=== PATIENT | male | born 1965 | race Caucasian/White ===

== ENCOUNTER 2021-05-08 17:19 | Inpatient (IN) | payer OTHER, SELFPAY ==
--- NOTE | ~2021-05-08 | FL_ITS ---
EXAMINATION: FL guidance in OR INDICATION: Reason for Exam cystoscopy COMPARISON: CT abdomen pelvis 05/08/2021 TECHNIQUE: Multiple fluoroscopic OR images were provided. FLUOROSCOPY TIME: 21.8 Cumulative dose: 7.35 mGy FINDINGS: Intraoperative fluoroscopy was obtained. No radiologist was in attendance. Partially imaged right ureteral stent. For operative report for complete evaluation. FL/FL guidance in OR IMPRESSION: Intraoperative fluoroscopy was obtained. Please correlate with intraoperative report.
--- NOTE | ~2021-05-08 | CT_ITS ---
EXAMINATION: CT ABDOMEN AND PELVIS WITHOUT CONTRAST CLINICAL INFORMATION: Flank pain COMPARISON: None TECHNIQUE: Multidetector volumetric imaging was performed from the superior aspect of the liver through the pubic symphysis. Sagittal and coronal reformatted images were obtained on the technologist's workstation. This CT examination was performed using dose optimization techniques as appropriate, variously including the following: *Automated exposure control *Adjustment of mA and/or kV according to patient size (this includes techniques or standardized protocols for targeted exams where dose is matched to indication/reason for exam; i.e. extremities or head) *Use of iterative reconstruction technique DLP: 647 mGy-cm FINDINGS: LUNG BASES: The visualized lung bases are unremarkable. LIVER, GALLBLADDER, AND BILIARY TREE: The liver is normal in size and shape but demonstrates decreased attenuation consistent with hepatic steatosis.. No focal hepatic lesion or biliary ductal dilatation is present. The gallbladder is unremarkable with no evidence of radiopaque gallstones, gallbladder wall thickening, or obvious pericholecystic inflammatory changes. PANCREAS: Unremarkable. SPLEEN: Unremarkable. A splenule is present ADRENAL GLANDS: Unremarkable. KIDNEYS AND URETERS: Left: A 7 x 3 mm ovoid stone is present at the left ureterovesical junction associated with dilatation of the ureter and moderate left-sided pelvocaliectasis. The stone measures 750 Hounsfield units. There is a 3 mm nonobstructing left lower pole renal calculus. No renal masses are seen Right: The right kidney and ureter appears normal. BLADDER: Unremarkable aside from the presence of the stone at the ureterovesical vesicle junction bulging into the bladder. GASTROINTESTINAL TRACT: The small and large bowel are unremarkable. The appendix is unremarkable. ABDOMINAL WALL: No significant hernia is appreciated. LYMPH NODES: No retroperitoneal lymphadenopathy VASCULAR: Mild calcific plaque present in the iliac vessels without aneurysm PELVIC VISCERA: There is mild BPH. Seminal vesicles appear normal OSSEOUS STRUCTURES: Unremarkable. CT/CT abdomen pelvis wo con IMPRESSION: 7 x 3 mm obstructing distal left ureteral calculus. Nonobstructing 3 mm left lower pole renal calculus. Other incidental findings as described above including hepatic steatosis and mild BPH Fleischner guidelines were followed.
[2021-05-08 17:49] VITALS: BP 172/102; PULSE 93; RESP 16; TEMP 36.7; O2SAT 98; BMI 31.9
[2021-05-08 18:13] LABS: Appearance Urine HAZY; Color Urine YELLOW; Glucose Urine UA NEG (NEG); Leukocyte Esterase Urine NEG (NEG); Nitrite Urine NEG (NEG); PH 6.5 (5.0-8.0); Specific Gravity - Urine 1.025 (1.005-1.025); UACC Culture Trigger NO; Urine Blood 2+ (NEG); Urine Ketones NEG (NEG); Urine Protein 2+ MG/DL (NEG-TRACE)
[2021-05-08 18:21] LABS: Squamous Epithelial Cell Urine TRACE /LPF
[2021-05-08 18:22] LABS: WBC Urine 0-2 /HPF (0-4)
--- NOTE | 2021-05-08 19:43 | ED_ITS ---
HPI - Male Genitourinary General Chief complaint: Urogenital-Male Stated complaint: left lower back pain Time Seen by Provider: 05/08/21 19:42 Source: patient Mode of arrival: ambulatory Limitations: no limitations History of Present Illness HPI Narrative: Patient is a 55-year-old male with no significant past medical history. He has been experiencing left flank pain for about 2 weeks. Today upon awakening, the pain had been increasingly worse and became intolerable throughout the day. He has been using Tylenol as needed for pain with minimal relief. He has associated pain with urination. Pain is made worse when lying down, and does report some relief with standing or walking. Denies fevers, chills, chest pain, palpitations, shortness breath, difficulty breathing, cough, nausea, vomiting, abdominal pain, hematuria, abnormal penile discharge, numbness or tingling of the legs, bowel or bladder dysunction. Related Data Allergies Allergy/AdvReac Type Severity Reaction Status Date / Time Penicillins Allergy Muscle Verified 05/08/21 17:49 cramps Review of Systems Review of Systems: Constitutional : No Weight loss, No Fever, No Chills ENT/Mouth :? No sore throat, No Rhinorrhea Eyes: No Swelling, No Redness Cardiovascular : No Chest Pain, No SOB, No Edema Respiratory : No Cough, No Sputum, No Wheezing Gastrointestinal : No Nausea, no Vomiting, no Diarrhea, no abdominal pain, No Hematochezia, No Melena Genitourinary : + left flank pain. + dysuria. No Urinary Frequency, No Hematuria, No Urgency? Musculoskeletal : No joint pain, No Myalgias, No Joint Swelling Skin : No Skin Lesions, No rash Neuro : No Weakness, No Numbness, No Dizziness, No Headache Psych : No Anxiety/Panic, No Depression Heme/Lymph: No Bruising, No Lymphadenopathy Endocrine : No Polyuria, No Polydipsia All other systems reviewed and are negative. [facility] Past Medical History Attestation statement: The following information was validated with the patient. Source: old records reviewed Medical History No known health problems Social History Social History Advance Directives: No Advance Directives Information Provided: No Physical Exam Vital Signs: Vital Signs: Last Vital Signs Temp 98.5 F 05/08/21 21:06 Pulse 83 05/08/21 21:06 Resp 16 05/08/21 21:06 BP 143/92 H 05/08/21 21:06 Pulse Ox 99 05/08/21 21:06 BMI result Body Mass Index 31.9 Vital signs have been reviewed and appeared to be correct. Blood pressure elevated 172/102. Heart rate normal.? Respiration rate normal. Temperature normal.? Oxygen saturation normal. Appearance: Alert.?Oriented to person, place and time. No acute distress. ?Normal affect. Eyes: Pupils equal, round and reactive to light.? ENT: Pharynx normal.?? Neck: Normal inspection.? Neck supple.?? CVS: Heart sounds normal. Normal heart rate and rhythm.? Pulses normal.?? Respiratory: No respiratory distress.? Lung sounds clear to auscultation bilaterally?? Abdomen: Soft and non-tender. Normoactive bowel sounds. No pulsatile mass.? : No CVA tenderness.? Skin: Skin warm and dry.? Normal skin color.? Normal skin turgor.?? Extremities: No lower extremity edema.? Back: No tenderness to palpation of the paraspinal muscles Neuro: Moves all extremities spontaneously. Sensation intact bilaterally. CN II- XII intact. No focal neuro deficits. Ambulates with normal steady gait. Course Course Course Narrative: Patient is a 55-year-old male with no significant past medical history being evaluated for left flank pain and dysuria. Urinalysis obtained from triage with no indication for infection, however, positive for 2+ blood and 15-29 rbc's, will obtain CT of the abdomen to evaluate for renal calculi, in addition to CBC and CMP. Not consistent with urinary tract infection, diverticulitis, testicular torsion. Not consistent with AAA, aortic dissection, ACS. Reevaluation(s) Reevaluation #1: Serum labs revealed hyperkalemia with potassium 5.7, YUDITH; BUN is normal at 15 but creatinine 1.96 and no comparison, 1L NS IVF ordered and Kayexalate, will repeat labs after medicated. CBC reveals a mild leukocytosis of 11. CT pending at this time. Time: 20:41 Reevaluation #2: CT reveals a 7 X 3 mm ovoid stone at the left UVJ with dilation of the ureter and moderate left-sided pelvocaliectasis, there is also a 3 mm nonobstructing left lower pole calculi. Incidental findings of hepatic steatosis and mild BPH. I discussed these findings with the patient. Given his additional YUDITH and hyperkalemia, will consult Urology Dr. Smalls, and plan for admission. Time: 21:16 Reevaluation #3: Spoke with Dr. Smalls from Urology who advises admission to medicine service for rehydration and likely procedure tomorrow. Spoke with Dr. Kirk, patient accepted to hospitalist service. Patient updated and is agreeable with plan. Time: 21:29 MDM - Male Genitourinary Medical Records Attestation: I reviewed the patient's medical records. Lab Data Attestation: I reviewed the patient's lab results. Result diagrams: 05/08/21 19:47 05/08/21 19:47 Labs: Lab Results 05/08/21 05/08/21 05/08/21 Range/Units 18:03 19:47 19:47 WBC 11.0 H (4.8-10.8) X10*3/uL RBC 5.02 (4.60-5.80) X10*6/uL Hgb 14.9 (14.0-18.0) g/dl Hct 46.4 (42.0-52.0) % MCV 92.4 (80.0-98.0) fL MCH 29.7 (27.0-33.0) pg MCHC 32.1 (31.0-36.0) g/dl RDW 13.0 (11.0-16.0) % Plt Count 258 (160-400) X10*3/uL MPV 10.0 (9.4-12.4) fL Immature Gran % (Auto) 0.2 (0.0-0.4) % Neut % (Auto) 75.3 H (45-73) % Lymph % (Auto) 14.6 L (20-40) % [place] % (Auto) 8.8 (2-11) % Eos % (Auto) 0.8 (0-4) % Baso % (Auto) 0.3 (0-2) % Lymph # (Auto) 1.6 (1.2-4.9) X10*3/uL [place] # (Auto) 1.0 (0.1-1.2) X10*3/uL Eos # (Auto) 0.1 (0.0-0.4) X10*3/uL Baso # (Auto) 0.0 (0.0-0.2) X10*3/uL Abs Immat Gran (auto) 0.02 (0.00-0.03) X10*3/uL Absolute Neuts (auto) 8.3 (2.0-8.3) x10*3/uL Absolute Nucleated RBC 0.000 (0.0-0.012) X10*3/uL Nucleated RBC % (auto) 0.0 (0.0-0.2) /100WBC Sodium 138 (135-145) mmol/L Potassium 5.7 H (3.3-5.1) mmol/L Chloride 105 (96-108) mmol/L Carbon Dioxide 23 (22-29) mmol/L Anion Gap 16 (12-20) BUN 15 (9-16) mg/dL Creatinine 1.96 H (0.5-1.4) mg/dL Estim Creat Clear Calc 45.7 Estimated GFR 36 Random Glucose 96 (60-115) mg/dL Calcium 9.3 (8.4-10.2) mg/dL Total Bilirubin 0.6 (0.0-1.0) mg/dL AST 48 H (5-37) U/L ALT 74 H (0-40) U/L Alkaline Phosphatase 70 (39-117) U/L Total Protein 8.5 H (6.5-8.0) g/dL Albumin 4.4 (3.5-5.0) g/dL Urine Color YELLOW Urine Appearance HAZY Urine pH 6.5 (5.0-8.0) Ur Specific [place] 1.025 (1.005-1.025) Urine Protein 2+ H (NEG-TRACE) MG/DL Urine Glucose (UA) NEG (NEG) MG/DL Urine Ketones NEG (NEG) MG/DL Urine Blood 2+ H (NEG) Urine Nitrite NEG (NEG) Ur Leukocyte Esterase NEG (NEG) Urine RBC 15-29 H (0) /HPF Urine WBC 0-2 (0-4) /HPF Ur Squamous Epith Cells TRACE /LPF Urine Bacteria NONE /LPF Imaging Data CT scan - abdomen: Radiologist's impression: [facility] [address] [place] [address] CT Scan Report Signed Patient: Dipak Ang MR#: [id number] : 1965 Acct:[id number] Age/Sex: 55 / M ADM Date: 05/08/21 Loc: HO.ED Attending Dr: Ordering Physician: Carmen Vickers CNP Date of Service: 05/08/21 Procedure(s): CT abdomen pelvis wo con Accession Number(s): [id number] cc: Carmen Vickers CNP~ EXAMINATION: CT ABDOMEN AND PELVIS WITHOUT CONTRAST? CLINICAL INFORMATION: Flank pain? COMPARISON: None? TECHNIQUE: Multidetector volumetric imaging was performed from the superior aspect of the liver through the pubic symphysis. Sagittal and coronal reformatted images were obtained on the technologist's workstation.? This CT examination was performed using dose optimization techniques as appropriate, variously including the following: *Automated exposure control *Adjustment of mA and/or kV according to patient size (this includes techniques or standardized protocols for targeted exams where dose is matched to indication/reason for exam; i.e. extremities or head) *Use of iterative reconstruction technique DLP: 647 mGy-cm FINDINGS: LUNG BASES: The visualized lung bases are unremarkable.? LIVER, GALLBLADDER, AND BILIARY TREE: The liver is normal in size and shape but demonstrates decreased attenuation consistent with hepatic steatosis.. No focal hepatic lesion or biliary ductal dilatation is present. The gallbladder is unremarkable with no evidence of radiopaque gallstones, gallbladder wall thickening, or obvious pericholecystic inflammatory changes.? PANCREAS: Unremarkable.? SPLEEN: Unremarkable. A splenule is present ADRENAL GLANDS: Unremarkable.? KIDNEYS AND URETERS: Left: A 7 x 3 mm ovoid stone is present at the left ureterovesical junction associated with dilatation of the ureter and moderate left-sided pelvocaliectasis. The stone measures 750 Hounsfield units. There is a 3 mm nonobstructing left lower pole renal calculus. No renal masses are seen Right: The right kidney and ureter appears normal. BLADDER: Unremarkable aside from the presence of the stone at the ureterovesical vesicle junction bulging into the bladder.? GASTROINTESTINAL TRACT: The small and large bowel are unremarkable. The appendix is unremarkable.? ABDOMINAL WALL: No significant hernia is appreciated.? LYMPH NODES: No retroperitoneal lymphadenopathy VASCULAR: Mild calcific plaque present in the iliac vessels without aneurysm PELVIC VISCERA: There is mild BPH. Seminal vesicles appear normal? OSSEOUS STRUCTURES: Unremarkable.? CT/CT abdomen pelvis wo con IMPRESSION: 7 x 3 mm obstructing distal left ureteral calculus. Nonobstructing 3 mm left lower pole renal calculus. Other incidental findings as described above including hepatic steatosis and mild BPH ? Fleischner guidelines were followed. ECG Data Attestation: I personally reviewed and interpreted this ECG as follows: ECG interpretation date: 05/08/21 ECG interpretation time: 20:57 Interpretation: Rate: 83 Rhythm:? Sinus rhythm with first-degree AV block [place]:? Normal Normal P waves.? WA interval prolonged 204? Normal QRS complex.?? ST T wave :??No ST elevation, no ST depression, no T-wave inversion qTC: 401 The study has been interpreted contemporaneously by me. Discharge Plan Discharge Clinical Impression: Obstruction of left ureteropelvic junction (UPJ) due to stone, Acute kidney injury, Acute hyperkalemia Patient Disposition: Still a Patient
[2021-05-08 19:55] LABS: MANUAL DIFF FLAG NO
[2021-05-08 19:57] LABS: Basophils Percent Auto 0.3 % (0-2); Eosinophils Absolute Auto 0.1 X10*3/uL (0.0-0.4); Eosinophils Percent Auto 0.8 % (0-4); Hematocrit 46.4 % (42.0-52.0); Hemoglobin 14.9 g/dl (14.0-18.0); Imm Gran Abs Auto 0.02 X10*3/uL (0.00-0.03); Imm Gran Pct Auto 0.2 % (0.0-0.4); Lymphocytes Absolute Auto 1.6 X10*3/uL (1.2-4.9); Lymphocytes Percent Auto 14.6 % (20-40); Mean Corpuscular HGB Conc 32.1 g/dl (31.0-36.0); Mean Corpuscular Hemoglobin 29.7 pg (27.0-33.0); Mean Corpuscular Volume 92.4 fL (80.0-98.0); Monocytes Percent Auto 8.8 % (2-11); Neutrophils Absolute Auto 8.3 x10*3/uL (2.0-8.3); Neutrophils Percent Auto 75.3 % (45-73); Platelet Count 258 X10*3/uL (160-400); Red Blood Count 5.02 X10*6/uL (4.60-5.80)
[2021-05-08 20:19] LABS: Alanine Aminotransferase 74 U/L (0-40); Albumin Level 4.4 g/dL (3.5-5.0); Alkaline Phosphatase 70 U/L (39-117); Anion Gap 16 (12-20); Aspartate Amino Transferase 48 U/L (5-37); Bilirubin Total 0.6 mg/dL (0.0-1.0); Blood Urea Nitrogen 15 mg/dL (9-16); Calcium 9.3 mg/dL (8.4-10.2); Carbon Dioxide 23 mmol/L (22-29); Chloride 105 mmol/L (96-108); Creatinine Clr Calc Pharmacy 45.7; Estimated Glomerular Filt Rate 36; Glucose Random 96 mg/dL (60-115); Potassium 5.7 mmol/L (3.3-5.1); Sodium 138 mmol/L (135-145); Total Protein 8.5 g/dL (6.5-8.0)
[2021-05-08] MEDS: Ketorolac Tromethamine 60 MG/2 ML VIAL IM (20:19)
--- NOTE | 2021-05-08 20:38 | ECG_ITS ---
Test Reason : HYPERKALEMIA Blood Pressure : / mmHG Vent. Rate : 083 BPM Atrial Rate : 083 BPM P-R Int : 204 ms QRS Dur : 088 ms QT Int : 342 ms P-R-T Axes : 052 -05 021 degrees QTc Int : 401 ms Normal sinus rhythm Normal ECG No previous ECGs available Referred By: Carmen Vickers Electronically Signed By:BARRY TRAYLOR MD
[2021-05-08 21:06] VITALS: BP 143/92; PULSE 83; RESP 16; TEMP 36.9; O2SAT 99
[2021-05-08] MEDS: Sodium Polystyrene Sulfon/Sorb 15 GM/60 ML ORAL.SUSP 30 GM PO (21:18)
[2021-05-08] MEDS: 0.9 % Sodium Chloride 1,000 ML 999 ML IV (21:18)
--- NOTE | 2021-05-08 22:51 | PM.IMHP ---
History of Present Illness Date of Service: 05/08/21 Chief Complaint: Flank pain this is a 55 yo M with no sig pmhx who presents to the hospital with left flank pain for past 2 wks. he reports that today the pain was worse, constant, 8/10, associated with nausea, no vomiting, no diarrhea constipation, no urinary symptoms. The pain is localized to the left flank, radiating to the groin.denies any fever or chills. no urinary symptoms. and no lower extremity symptoms. on arrival to the ed pt found to have temp of 98.1, HR of 93, RR of 16 BP of 172/102, sating 98% on RA Labs were sig for WBC ct of 11, potassium of 5.7 that resolved to 4 point T after rechecking the labs, creatinine of 1.96 with no baseline for comparison, AST of 48, ALT of 74, UA negative CT pelvic abd showed 7 x 3 mm obstructing distal left ureteral calculus. Nonobstructing 3 mm, withleft lower pole renal calculus.? Urology consulted and pt will be admitted for further management Review of Systems Review of Systems: Yes all other systems are reviewed and are negative [facility] Medical History (Updated 05/10/21 @ 21:00 by Flory Kirk MD) No known health problems Family History (Updated 05/10/21 @ 20:56 by Flory Kirk MD) Other No family history of coronary artery disease Surgical History (Updated 05/10/21 @ 20:57 by Flory Kirk MD) No pertinent past surgical history Social History (Updated 05/10/21 @ 20:58 by Flory Kirk MD) Household Members: Spouse Housing: House Do you presently have visiting nurse or other home services: No Alcohol intake: current Patient Tobacco Use Status: Never used Tobacco Use of substances other than those prescribed or required for medical reasons: No Advance Directives Date on File: 05/09/21 service: No Current occupational status: employed Meds Allergies Allergy/AdvReac Type Severity Reaction Status Date / Time Penicillins Allergy Muscle Verified 05/08/21 17:49 cramps Active Medications: Current Medications Pharmacy Consult (Consult Rx Perform Med Rec) 1 each MISCELLANE ONCE PRN PRN Reason: Consult order Home Medications Medication Instructions Recorded Confirmed Last Taken Type multivitamin 1 tab PO DAILY 05/08/21 05/08/21 05/08/21 History Physical Exam Vital Signs and Narrative: Vital Signs: Last Vital Signs Temp 98.5 F 05/08/21 21:06 Pulse 83 05/08/21 21:06 Resp 16 05/08/21 21:06 BP 143/92 H 05/08/21 21:06 Pulse Ox 99 05/08/21 21:06 BMI result Body Mass Index 31.9 Const: General: cooperative and no acute distress Orientation/consciousness: patient oriented x3 Eyes: General: appearance normal, both eyes and all related structures Pupils: Equal, round and reactive pupils present Resp: Effort & Inspection: normal respiratory effort Auscultation: clear to auscultation bilaterally Cardio: Rate: regular rate Rhythm: regular rhythm GI: Palpation (GI): Soft to palpation Auscultation: normal bowel sounds : Other: left cva tenderness Skin: General skin exam: no rashes or lesions noted Neuro: General: patient oriented x3 Cranial nerves: Yes Equal, round and reactive pupils present Cognition (Neuro): normal cognition Extrem: General: Yes normal to inspection and Yes no pedal edema Results Labs CBC and Chem 7: 05/09/21 07:06 05/10/21 05:12 Labs: Laboratory Results - last 24 hr 05/08/21 05/08/21 05/08/21 18:03 19:47 19:47 MCV 92.4 MCH 29.7 MCHC 32.1 RDW 13.0 Plt Count 258 MPV 10.0 Immature Gran % (Auto) 0.2 Neut % (Auto) 75.3 H Lymph % (Auto) 14.6 L [place] % (Auto) 8.8 Eos % (Auto) 0.8 Baso % (Auto) 0.3 Lymph # (Auto) 1.6 [place] # (Auto) 1.0 Eos # (Auto) 0.1 Baso # (Auto) 0.0 Abs Immat Gran (auto) 0.02 Absolute Neuts (auto) 8.3 Absolute Nucleated RBC 0.000 Nucleated RBC % (auto) 0.0 Anion Gap 16 Estim Creat Clear Calc 45.7 Estimated GFR 36 Random Glucose 96 Calcium 9.3 Total Bilirubin 0.6 AST 48 H ALT 74 H Alkaline Phosphatase 70 Total Protein 8.5 H Albumin 4.4 Urine Color YELLOW Urine Appearance HAZY Urine pH 6.5 Ur Specific [place] 1.025 Urine Protein 2+ H Urine Glucose (UA) NEG Urine Ketones NEG Urine Blood 2+ H Urine Nitrite NEG Ur Leukocyte Esterase NEG Urine RBC 15-29 H Urine WBC 0-2 Ur Squamous Epith Cells TRACE Urine Bacteria NONE Imaging Radiologist's Impressions: Impressions Abdomen/Pelvis CT 05/08/21 20:11 IMPRESSION: 7 x 3 mm obstructing distal left ureteral calculus. Nonobstructing 3 mm left lower pole renal calculus. Other incidental findings as described above including hepatic steatosis and mild BPH Fleischner guidelines were followed. Assessment and Plan (1) Acute kidney injury: Status: Acute (2) Acute hyperkalemia: Status: Acute (3) Urinary tract obstruction by kidney stone: Status: Acute (4) Ureteric stone: Status: Acute Plan 55 yo M who presents to the hospital with complaints of flank pain found to have obstructing kidney stone # obstructing renal stone - will tx with iv abx - iv fluids - consult urology - follow cultures # hyperkalemia - received kayexalate - follow BMP Given the obstructing stone, leukocytosis and CVA tenderness will need IV abx and admission for pyelonephritis and urology evaluation Quality Stroke Does the patient have a stroke diagnosis?: No VTE Prior VTE?: No VTE Risk Level:: Medical - moderate - high VTE Device Contraindication: N/A - Device Ordered VTE Drug Contraindication: Treatment Not Indicated
[2021-05-08] MEDS: cefTRIAXone sodium 1 GM in 0.9 % Sodium Chloride 50 ML IV (23:16)
[2021-05-08] MEDS: Enoxaparin Sodium 40 MG/0.4 ML SYRINGE SUBCUT (23:16)
[2021-05-08 23:58] LABS: Anion Gap 10 (12-20); Blood Urea Nitrogen 15 mg/dL (9-16); Calcium 8.6 mg/dL (8.4-10.2); Carbon Dioxide 27 mmol/L (22-29); Chloride 107 mmol/L (96-108); Creatinine Clr Calc Pharmacy 48.9; Estimated Glomerular Filt Rate 39; Glucose Random 101 mg/dL (60-115); Potassium 4.2 mmol/L (3.3-5.1); Sodium 140 mmol/L (135-145)
[2021-05-09] VITALS (10 sets, daily range): BP systolic 129–144; BP diastolic 62–94; PULSE 71–94; RESP 12–20; TEMP 36.3–37.4; O2SAT 94–97; BMI 31.9
[2021-05-09] MEDS: 0.9 % Sodium Chloride Flush 3 ML SYRINGE IVFLUSH
--- NOTE | 2021-05-09 00:57 | PC.NURSE ---
REPORT GIVEN TO DUANE ANDREW. PT MOVED TO ROOM 22.
--- NOTE | 2021-05-09 01:11 | PC.NURSE ---
Assumed care of pt Pt resting on stretcher Pt states pain tolerable at this time NAD LR infusing Will continue to monitor
--- NOTE | 2021-05-09 02:21 | PC.NURSE ---
Covid swab collected
[2021-05-09 02:38] LABS: COVID-19 Test Negative (Negative)
[2021-05-09 07:14] LABS: MANUAL DIFF FLAG NO
[2021-05-09 07:16] LABS: Basophils Percent Auto 0.4 % (0-2); Eosinophils Absolute Auto 0.2 X10*3/uL (0.0-0.4); Hematocrit 41.7 % (42.0-52.0); Hemoglobin 13.7 g/dl (14.0-18.0); Imm Gran Abs Auto 0.02 X10*3/uL (0.00-0.03); Imm Gran Pct Auto 0.3 % (0.0-0.4); Lymphocytes Absolute Auto 2.4 X10*3/uL (1.2-4.9); Lymphocytes Percent Auto 30.7 % (20-40); Mean Corpuscular HGB Conc 32.9 g/dl (31.0-36.0); Mean Corpuscular Volume 91.4 fL (80.0-98.0); Mean Platelet Volume 9.9 fL (9.4-12.4); Monocytes Absolute Auto 0.8 X10*3/uL (0.1-1.2); Monocytes Percent Auto 10.4 % (2-11); Neutrophils Absolute Auto 4.4 x10*3/uL (2.0-8.3); Neutrophils Percent Auto 56.2 % (45-73); Platelet Count 219 X10*3/uL (160-400); Red Blood Count 4.56 X10*6/uL (4.60-5.80); White Blood Count 7.9 X10*3/uL (4.8-10.8)
[2021-05-09 07:51] LABS: Anion Gap 10 (12-20); Blood Urea Nitrogen 14 mg/dL (9-16); Calcium 8.4 mg/dL (8.4-10.2); Carbon Dioxide 28 mmol/L (22-29); Chloride 106 mmol/L (96-108); Creatinine Clr Calc Pharmacy 51.2; Estimated Glomerular Filt Rate 41; Glucose Random 106 mg/dL (60-115); Potassium 4.2 mmol/L (3.3-5.1); Sodium 140 mmol/L (135-145)
--- NOTE | 2021-05-09 08:57 | HO.PM.IMPN ---
Subjective Subjective Date of Service: 05/09/21 Interval History: uti, renal stone Review of Systems abd pain Physical Exam Vital Signs: Vital Signs: Last Vital Signs Temp 98.0 F 05/09/21 04:18 Pulse 79 05/09/21 04:18 Resp 12 05/09/21 04:18 BP 141/83 H 05/09/21 04:18 Pulse Ox 94 05/09/21 04:18 BMI result Body Mass Index 31.9 Appearance: Alert.? Oriented X3.? not in distress.? Eyes: Pupils equal, round and reactive to light.? Sclera nonicteric.? ENT: Pharynx normal.? Moist mucous membranes. cvs: rrr, [id number] . res: clear to auscultation ,no rhonchii or wheezing abd: no rebound or guarding ,nt, bs present. ext pulses present , no cyanosis . neuro: axo3 , nonfocal. Objective Data Active Medications Acetaminophen (Acetaminophen 325 Mg Tablet) 650 mg PO Q6H PRN PRN Reason: Pain, Mild (Pain Scale 1-3) Docusate Sodium (Docusate Sodium 100 Mg Capsule) 100 mg PO DAILY PRN PRN Reason: Constipation Enoxaparin Sodium (Enoxaparin Sodium 40 Mg/0.4 Ml Syringe) 40 mg SUBCUT Q24H [facility] Last Admin: 05/08/21 23:16 Dose: 40 mg Documented by: JESUS Ceftriaxone Sodium 1 gm/ (Sodium Chloride) 50 mls @ 100 mls/hr IV Q24H [facility] Last Infusion: 05/09/21 00:00 Dose: 0 mls/hr Documented by: JESUS Lactated Ringer's (Lr) 1,000 mls @ 100 mls/hr IVCONT .Q10H [facility] Last Admin: 05/09/21 00:00 Dose: 100 mls/hr Documented by: JESUS Morphine Sulfate (Morphine Sulfate 4 Mg/Ml Cartridge) 4 mg IVPUSH Q4H PRN; Protocol PRN Reason: Pain, Severe (Pain Scale 7-10) Multivitamins/Vitamin C (Multivitamin Tablet) 1 tab PO DAILY [facility] Last Admin: 05/09/21 08:32 Dose: Not Given Documented by: AMBREEN Non-Admin Reason: NPO Ondansetron HCl (Ondansetron Hcl 4 Mg/2 Ml Vial) 4 mg IVPUSH Q8H PRN PRN Reason: Nausea and Vomiting Oxycodone HCl (Oxycodone Hcl Immed Release 5 Mg Tablet) 5 mg PO Q6H PRN PRN Reason: Pain, Severe (Pain Scale 7-10) Pharmacy Consult (Consult Rx Perform Med Rec) 1 each MISCELLANE ONCE PRN PRN Reason: Consult order Sodium Chloride (0.9 % Sodium Chloride Flush 3 Ml Sy[facility]) [facility] Admin: 05/09/21 00:00 Dose: 3 ml Documented by: JESUS Labs CBC & Chem 7: 05/09/21 07:06 05/09/21 07:06 Labs: Laboratory Results - last 24 hr 05/08/21 05/08/21 05/08/21 18:03 19:47 19:47 MCV 92.4 MCH 29.7 MCHC 32.1 RDW 13.0 Plt Count 258 MPV 10.0 Immature Gran % (Auto) 0.2 Neut % (Auto) 75.3 H Lymph % (Auto) 14.6 L [place] % (Auto) 8.8 Eos % (Auto) 0.8 Baso % (Auto) 0.3 Lymph # (Auto) 1.6 [place] # (Auto) 1.0 Eos # (Auto) 0.1 Baso # (Auto) 0.0 Abs Immat Gran (auto) 0.02 Absolute Neuts (auto) 8.3 Absolute Nucleated RBC 0.000 Nucleated RBC % (auto) 0.0 Anion Gap 16 Estim Creat Clear Calc 45.7 Estimated GFR 36 Random Glucose 96 Calcium 9.3 Total Bilirubin 0.6 AST 48 H ALT 74 H Alkaline Phosphatase 70 Total Protein 8.5 H Albumin 4.4 Urine Color YELLOW Urine Appearance HAZY Urine pH 6.5 Ur Specific [place] 1.025 Urine Protein 2+ H Urine Glucose (UA) NEG Urine Ketones NEG Urine Blood 2+ H Urine Nitrite NEG Ur Leukocyte Esterase NEG Urine RBC 15-29 H Urine WBC 0-2 Ur Squamous Epith Cells TRACE Urine Bacteria NONE COVID-19 (KELLY) COVID-19 Clin Com 05/08/21 05/09/21 05/09/21 23:20 02:18 07:06 MCV 91.4 MCH 30.0 MCHC 32.9 RDW 13.0 Plt Count 219 MPV 9.9 Immature Gran % (Auto) 0.3 Neut % (Auto) 56.2 Lymph % (Auto) 30.7 [place] % (Auto) 10.4 Eos % (Auto) 2.0 Baso % (Auto) 0.4 Lymph # (Auto) 2.4 [place] # (Auto) 0.8 Eos # (Auto) 0.2 Baso # (Auto) 0.0 Abs Immat Gran (auto) 0.02 Absolute Neuts (auto) 4.4 Absolute Nucleated RBC 0.000 Nucleated RBC % (auto) 0.0 Anion Gap 10 L Estim Creat Clear Calc 48.9 Estimated GFR 39 Random Glucose 101 Calcium 8.6 D Total Bilirubin AST ALT Alkaline Phosphatase Total Protein Albumin Urine Color Urine Appearance Urine pH Ur Specific [place] Urine Protein Urine Glucose (UA) Urine Ketones Urine Blood Urine Nitrite Ur Leukocyte Esterase Urine RBC Urine WBC Ur Squamous Epith Cells Urine Bacteria COVID-19 (KELLY) Negative COVID-19 Clin Com See Note 05/09/21 07:06 MCV MCH MCHC RDW Plt Count MPV Immature Gran % (Auto) Neut % (Auto) Lymph % (Auto) [place] % (Auto) Eos % (Auto) Baso % (Auto) Lymph # (Auto) [place] # (Auto) Eos # (Auto) Baso # (Auto) Abs Immat Gran (auto) Absolute Neuts (auto) Absolute Nucleated RBC Nucleated RBC % (auto) Anion Gap 10 L Estim Creat Clear Calc 51.2 Estimated GFR 41 Random Glucose 106 Calcium 8.4 Total Bilirubin AST ALT Alkaline Phosphatase Total Protein Albumin Urine Color Urine Appearance Urine pH Ur Specific [place] Urine Protein Urine Glucose (UA) Urine Ketones Urine Blood Urine Nitrite Ur Leukocyte Esterase Urine RBC Urine WBC Ur Squamous Epith Cells Urine Bacteria COVID-19 (KELLY) COVID-19 Clin Com Assessment and Plan (1) Acute kidney injury: Status: Acute (2) Acute hyperkalemia: Status: Acute (3) Obstruction of left ureteropelvic junction (UPJ) due to stone: Status: Acute Plan Male was admitted for 55-year-old male admitted for YUDITH, renal stone, UTI possible 1. YUDITH and Obstructive uropathy secondary to renal stone. Continue IV fluid, pain control Urology evaluation for possible renal stone removal and stent. 2. UTI possible: Continue IV antibiotics 3 morbid obesity: Encouraged for weight loss, consider outpatient bariatric evaluation. Quality Stroke Does the patient have a stroke diagnosis?: No VTE Prior VTE?: No VTE Risk Level:: Medical - moderate - high VTE Device Contraindication: N/A - Device Ordered VTE Drug Contraindication: Treatment Not Indicated
--- NOTE | 2021-05-09 09:32 | MHC.CM.PN ---
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
[2021-05-09] MEDS: Lactated Ringers 1,000 ML 100 ML IVCONT ×3 (10:12→18:32)
[2021-05-09] MEDS: Acetaminophen 325 MG TABLET 650 MG PO ×2 (13:42→18:33)
--- NOTE | 2021-05-09 15:08 | PM.UROCN ---
History of Present Illness Consult details Consult date: 05/09/21 Narrative: 55-year-old male Present with left-sided flank pain of 2 days duration Associated with nausea but no vomiting Creatinine 1.7, WBC 7.9 CT scan imaging shows 7 mm left UVJ stone and associated hydroureteronephrosis Based on elevated creatinine and evidence of obstruction recommend intervention with stone removal and stent Questions answered Review of Systems Constitutional: Constitutional: Reports as per HPI and Reports no additional constitutional complaints Cardiovascular: Cardiovascular: Reports as per HPI and Reports no additional cardiovascular complaints Respiratory: Respiratory: Reports as per HPI and Reports no additional respiratory complaints Gastrointestinal: Gastrointestinal: Reports as per HPI and Reports no additional gastrointestinal complaints Genitourinary: Genitourinary: Reports as per HPI Musculoskeletal: Musculoskeletal: Reports no additional musculoskeletal complaints and Reports as per HPI Neurologic: Reports system reviewed and no additional complaints, except as documented and Reports as per HPI PMF Past Medical History Medical History (Updated 05/09/21 @ 15:09 by Jerzy Smalls MD) No known health problems Social History Social History Advance Directives: Yes Advance Directives on File: Yes Advance Directives Date on File: 05/09/21 service: No Current occupational status: employed Meds Allergies Allergy/AdvReac Type Severity Reaction Status Date / Time Penicillins Allergy Muscle Verified 05/08/21 17:49 cramps Active Medications: Current Medications Acetaminophen (Acetaminophen 325 Mg Tablet) 650 mg PO Q6H PRN PRN Reason: Pain, Mild (Pain Scale 1-3) Last Admin: 05/09/21 13:42 Dose: 650 mg Documented by: Docusate Sodium (Docusate Sodium 100 Mg Capsule) 100 mg PO DAILY PRN PRN Reason: Constipation Enoxaparin Sodium (Enoxaparin Sodium 40 Mg/0.4 Ml Syringe) 40 mg SUBCUT Q24H [facility] Last Admin: 05/08/21 23:16 Dose: 40 mg Documented by: Ceftriaxone Sodium 1 gm/ (Sodium Chloride) 50 mls @ 100 mls/hr IV Q24H [facility] Last Infusion: 05/09/21 00:00 Dose: Infused Documented by: Lactated Ringer's (Lr) 1,000 mls @ 100 mls/hr IVCONT .Q10H [facility] Last Admin: 05/09/21 10:12 Dose: 100 mls/hr Documented by: Morphine Sulfate (Morphine Sulfate 4 Mg/Ml Cartridge) 4 mg IVPUSH Q4H PRN; Protocol PRN Reason: Pain, Severe (Pain Scale 7-10) Multivitamins/Vitamin C (Multivitamin Tablet) 1 tab PO DAILY [facility] Last Admin: 05/09/21 08:32 Dose: Not Given Documented by: Ondansetron HCl (Ondansetron Hcl 4 Mg/2 Ml Vial) 4 mg IVPUSH Q8H PRN PRN Reason: Nausea and Vomiting Oxycodone HCl (Oxycodone Hcl Immed Release 5 Mg Tablet) 5 mg PO Q6H PRN PRN Reason: Pain, Severe (Pain Scale 7-10) Pharmacy Consult (Consult Rx Perform Med Rec) 1 each MISCELLANE ONCE PRN PRN Reason: Consult order Sodium Chloride (0.9 % Sodium Chloride Flush 3 Ml Syringe) 3 ml IVFLUSH QSHIFT [facility] Last Admin: 05/09/21 11:07 Dose: Not Given Documented by: Home Medications Medication Instructions Recorded Confirmed Last Taken Type multivitamin 1 tab PO DAILY 05/08/21 05/08/21 05/08/21 History Physical Exam Vital Signs: Vital Signs: Last Vital Signs Temp 98.0 F 05/09/21 04:18 Pulse 79 05/09/21 04:18 Resp 12 05/09/21 04:18 BP 141/83 H 05/09/21 04:18 Pulse Ox 94 05/09/21 04:18 BMI result Body Mass Index 31.9 Const: General: cooperative, healthy appearing, comfortable and no acute distress Orientation/consciousness: patient oriented x3 HENMT: Face and sinus: Yes normal facial exam Mouth: moist mucous membranes Neck: Neck: Yes normal visual inspection, Yes full ROM and Yes trachea midline Chest: Chest palpation & inspection: normal inspection of the chest Resp: Effort & Inspection: normal respiratory effort, able to speak in complete sentences and no respiratory distress GI: Inspection: Yes normal to inspection Back/Spine/Pelvis: Cervical Spine: normal cervical lordosis Thoracic/Lumbar Spine: thoracic and lumbar spine normal to inspection Skin: General skin exam: no rashes or lesions noted Neuro: General: patient oriented x3, tone normal and moves all extremities Extrem: General: Yes normal to inspection and Yes capillary refill normal Results Labs Result diagrams: 05/09/21 07:06 05/09/21 07:06 Labs: Abnormal lab results 05/08/21 05/08/21 05/08/21 Range/Units 18:03 19:47 19:47 WBC 11.0 H (4.8-10.8) X10*3/uL RBC (4.60-5.80) X10*6/uL Hgb (14.0-18.0) g/dl Hct (42.0-52.0) % Neut % (Auto) 75.3 H (45-73) % Lymph % (Auto) 14.6 L (20-40) % Potassium 5.7 H (3.3-5.1) mmol/L Anion Gap (12-20) Creatinine 1.96 H (0.5-1.4) mg/dL AST 48 H (5-37) U/L ALT 74 H (0-40) U/L Total Protein 8.5 H (6.5-8.0) g/dL Urine Protein 2+ H (NEG-TRACE) MG/DL Urine Blood 2+ H (NEG) Urine RBC 15-29 H (0) /HPF 05/08/21 05/09/21 05/09/21 Range/Units 23:20 07:06 07:06 WBC (4.8-10.8) X10*3/uL RBC 4.56 L (4.60-5.80) X10*6/uL Hgb 13.7 L (14.0-18.0) g/dl Hct 41.7 L (42.0-52.0) % Neut % (Auto) (45-73) % Lymph % (Auto) (20-40) % Potassium (3.3-5.1) mmol/L Anion Gap 10 L 10 L (12-20) Creatinine 1.83 H 1.75 H (0.5-1.4) mg/dL AST (5-37) U/L ALT (0-40) U/L Total Protein (6.5-8.0) g/dL Urine Protein (NEG-TRACE) MG/DL Urine Blood (NEG) Urine RBC (0) /HPF Short CBC 05/08/21 05/09/21 Range/Units 19:47 07:06 WBC 11.0 H 7.9 (4.8-10.8) X10*3/uL Hgb 14.9 13.7 L (14.0-18.0) g/dl Hct 46.4 41.7 L (42.0-52.0) % Plt Count 258 219 (160-400) X10*3/uL BMP 05/08/21 05/08/21 05/09/21 19:47 23:20 07:06 Sodium 138 140 140 Potassium 5.7 H 4.2 D 4.2 Chloride 105 107 106 Carbon Dioxide 23 27 28 BUN 15 15 14 Creatinine 1.96 H 1.83 H 1.75 H Calcium 9.3 8.6 D 8.4 Liver Function 05/08/21 Range/Units 19:47 Total Bilirubin 0.6 (0.0-1.0) mg/dL AST 48 H (5-37) U/L ALT 74 H (0-40) U/L Alkaline Phosphatase 70 (39-117) U/L Albumin 4.4 (3.5-5.0) g/dL Urine 05/08/21 Range/Units 18:03 Urine Color YELLOW Urine Appearance HAZY Urine pH 6.5 (5.0-8.0) Ur Specific [place] 1.025 (1.005-1.025) Urine Protein 2+ H (NEG-TRACE) MG/DL Urine Glucose (UA) NEG (NEG) MG/DL All other labs normal. Assessment and Plan (1) Ureteric stone: Status: Acute Plan Left UVJ stone Ureteroscopy We discussed the nature of the decision and reasonable alternatives for performing the above surgery. Interventions include chemical dissolution, ESWL, ureteroscopy with laser lithotripsy and stent placement, PCNL. Options such as medical therapy were discussed. The relative uncertainties and benefits related to each alternate procedure were adequately discussed. General surgical risks including, but not limited to, pain, bleeding, infection, myocardial infarction, pulmonary embolus, deep vein thrombosis and cerebrovascular accident which may result in further hospitalization were discussed. Full disclosure of the procedure as well as all major risks, benefits and complications were discussed including but not limited to damage to the urethra, bladder and kidney infection, damage to the ureter, stent migration or malposition, scarring to the renal pelvis, remnant stone fragments, subsequent stone passage with need for secondary procedures. The overall secondary procedure rate is approximately 10-15%. The success rate of the procedure was discussed. Success of the procedure in the short-term does not necessarily guarantee that long-term success will be maintained. Suitable follow up will need to be maintained. The patient showed understanding of discussion and wishes to proceed with - cystoscopy, retrograde, ureteroscopy, possible lithotripsy/stone basketing and stent on the left side - semi rigid Procedures Date of Service Date of Service: 05/09/21
--- NOTE | 2021-05-09 15:35 | HO.ANESPROP2 ---
HPI - Anesthesia Eval Consult details Narrative: Left ureter obstruction, acute renal failure PMFSH Active Problems Active Problems: All Active Problems (Updated 05/09/21 @ 15:09 by Jerzy Smalls MD) Ureteric stone (Acute) Acute kidney injury (Acute) Acute hyperkalemia (Acute) Past Medical History Medical History (Updated 05/09/21 @ 15:09 by Jerzy Smalls MD) No known health problems Family History Family history of problems with anesthesia: No Surgical History History of Problems with Anesthesia: No Social History Social History Advance Directives: Yes Advance Directives on File: Yes Advance Directives Date on File: 05/09/21 service: No Current occupational status: employed Meds Allergies Allergy/AdvReac Type Severity Reaction Status Date / Time Penicillins Allergy Muscle Verified 05/08/21 17:49 cramps Active Medications: Current Medications Acetaminophen (Acetaminophen 325 Mg Tablet) 650 mg PO Q6H PRN PRN Reason: Pain, Mild (Pain Scale 1-3) Last Admin: 05/09/21 13:42 Dose: 650 mg Documented by: Docusate Sodium (Docusate Sodium 100 Mg Capsule) 100 mg PO DAILY PRN PRN Reason: Constipation Enoxaparin Sodium (Enoxaparin Sodium 40 Mg/0.4 Ml Syringe) 40 mg SUBCUT Q24H [facility] Last Admin: 05/08/21 23:16 Dose: 40 mg Documented by: Ceftriaxone Sodium 1 gm/ (Sodium Chloride) 50 mls @ 100 mls/hr IV Q24H [facility] Last Infusion: 05/09/21 00:00 Dose: Infused Documented by: Lactated Ringer's (Lr) 1,000 mls @ 100 mls/hr IVCONT .Q10H [facility] Last Admin: 05/09/21 10:12 Dose: 100 mls/hr Documented by: Morphine Sulfate (Morphine Sulfate 4 Mg/Ml Cartridge) 4 mg IVPUSH Q4H PRN; Protocol PRN Reason: Pain, Severe (Pain Scale 7-10) Multivitamins/Vitamin C (Multivitamin Tablet) 1 tab PO DAILY [facility] Last Admin: 05/09/21 08:32 Dose: Not Given Documented by: Ondansetron HCl (Ondansetron Hcl 4 Mg/2 Ml Vial) 4 mg IVPUSH Q8H PRN PRN Reason: Nausea and Vomiting Oxycodone HCl (Oxycodone Hcl Immed Release 5 Mg Tablet) 5 mg PO Q6H PRN PRN Reason: Pain, Severe (Pain Scale 7-10) Pharmacy Consult (Consult Rx Perform Med Rec) 1 each MISCELLANE ONCE PRN PRN Reason: Consult order Sodium Chloride (0.9 % Sodium Chloride Flush 3 Ml Syringe) 3 ml IVFLUSH QSHIFT [facility] Last Admin: 05/09/21 11:07 Dose: Not Given Documented by: Home Medications Medication Instructions Recorded Confirmed Last Taken Type multivitamin 1 tab PO DAILY 05/08/21 05/08/21 05/08/21 History Exam Exam Date and Time: May 09, 2021 1535 Height,Weight and Vital Signs: Height 5 ft 6 in Weight 89.811 kg Last Vital Signs Temp 98.0 F 05/09/21 04:18 Pulse 79 05/09/21 04:18 Resp 12 05/09/21 04:18 BP 141/83 H 05/09/21 04:18 Pulse Ox 94 05/09/21 04:18 Pertinent Lab Results Pertinent Lab Results: Laboratory Tests 05/08/21 05/08/21 05/08/21 18:03 19:47 19:47 WBC 11.0 H RBC 5.02 Hgb 14.9 Hct 46.4 MCV 92.4 MCH 29.7 MCHC 32.1 RDW 13.0 Plt Count 258 MPV 10.0 Immature Gran % (Auto) 0.2 Neut % (Auto) 75.3 H Lymph % (Auto) 14.6 L [place] % (Auto) 8.8 Eos % (Auto) 0.8 Baso % (Auto) 0.3 Lymph # (Auto) 1.6 [place] # (Auto) 1.0 Eos # (Auto) 0.1 Baso # (Auto) 0.0 Abs Immat Gran (auto) 0.02 Absolute Neuts (auto) 8.3 Absolute Nucleated RBC 0.000 Nucleated RBC % (auto) 0.0 Sodium 138 Potassium 5.7 H Chloride 105 Carbon Dioxide 23 Anion Gap 16 BUN 15 Creatinine 1.96 H Estim Creat Clear Calc 45.7 Estimated GFR 36 Random Glucose 96 Calcium 9.3 Total Bilirubin 0.6 AST 48 H ALT 74 H Alkaline Phosphatase 70 Total Protein 8.5 H Albumin 4.4 Urine Color YELLOW Urine Appearance HAZY Urine pH 6.5 Ur Specific [place] 1.025 Urine Protein 2+ H Urine Glucose (UA) NEG Urine Ketones NEG Urine Blood 2+ H Urine Nitrite NEG Ur Leukocyte Esterase NEG Urine RBC 15-29 H Urine WBC 0-2 Ur Squamous Epith Cells TRACE Urine Bacteria NONE COVID-19 (KELLY) COVID-19 Clin Com 05/08/21 05/09/21 05/09/21 23:20 02:18 07:06 WBC 7.9 RBC 4.56 L Hgb 13.7 L Hct 41.7 L MCV 91.4 MCH 30.0 MCHC 32.9 RDW 13.0 Plt Count 219 MPV 9.9 Immature Gran % (Auto) 0.3 Neut % (Auto) 56.2 Lymph % (Auto) 30.7 [place] % (Auto) 10.4 Eos % (Auto) 2.0 Baso % (Auto) 0.4 Lymph # (Auto) 2.4 [place] # (Auto) 0.8 Eos # (Auto) 0.2 Baso # (Auto) 0.0 Abs Immat Gran (auto) 0.02 Absolute Neuts (auto) 4.4 Absolute Nucleated RBC 0.000 Nucleated RBC % (auto) 0.0 Sodium 140 Potassium 4.2 D Chloride 107 Carbon Dioxide 27 Anion Gap 10 L BUN 15 Creatinine 1.83 H Estim Creat Clear Calc 48.9 Estimated GFR 39 Random Glucose 101 Calcium 8.6 D Total Bilirubin AST ALT Alkaline Phosphatase Total Protein Albumin Urine Color Urine Appearance Urine pH Ur Specific [place] Urine Protein Urine Glucose (UA) Urine Ketones Urine Blood Urine Nitrite Ur Leukocyte Esterase Urine RBC Urine WBC Ur Squamous Epith Cells Urine Bacteria COVID-19 (KELLY) Negative COVID-19 Clin Com See Note 05/09/21 07:06 WBC RBC Hgb Hct MCV MCH MCHC RDW Plt Count MPV Immature Gran % (Auto) Neut % (Auto) Lymph % (Auto) [place] % (Auto) Eos % (Auto) Baso % (Auto) Lymph # (Auto) [place] # (Auto) Eos # (Auto) Baso # (Auto) Abs Immat Gran (auto) Absolute Neuts (auto) Absolute Nucleated RBC Nucleated RBC % (auto) Sodium 140 Potassium 4.2 Chloride 106 Carbon Dioxide 28 Anion Gap 10 L BUN 14 Creatinine 1.75 H Estim Creat Clear Calc 51.2 Estimated GFR 41 Random Glucose 106 Calcium 8.4 Total Bilirubin AST ALT Alkaline Phosphatase Total Protein Albumin Urine Color Urine Appearance Urine pH Ur Specific [place] Urine Protein Urine Glucose (UA) Urine Ketones Urine Blood Urine Nitrite Ur Leukocyte Esterase Urine RBC Urine WBC Ur Squamous Epith Cells Urine Bacteria COVID-19 (KELLY) COVID-19 Clin Com Airway Mallampati Class: II TM Dist: >3cm Neck ROM: Full Heart: RRR Lungs: CTA Assessment and Plan Assessment Anesthesia Assessment: Anesthesia Plan Discussed and Chart Reviewed Final Anesthetic Review Family History of Problems with Anesthesia: No History of Problems with Anesthesia: No NPO: Yes ASA Class: II Final Preanesthetic Review: No Changes in Pt Med Stat, Meds/Allgs Chart Reviewed and Anes Risks/Benef Reviewed Patient Risk: Low Procedure Risk: Low Anesthetic Plan Anesthetic Plan: GA Disposition: Standard PACU
--- NOTE | 2021-05-09 16:04 | MHC.SHP ---
Pre-Procedural Eval Section A Date of Service: 05/09/21 The patient is an INPATIENT: Yes Changes since office visit: No Cold of Flu in the past 2 weeks, No New Medical Problems, No Changes in Medication and No Patient answered all questions The History & Physical has been completed within 30 days and I have reviewed it.: Yes Section B Chief Complaint: Obstructing Stone, Pyelo, UTI Allergies: Allergies Allergy/AdvReac Type Severity Reaction Status Date / Time Penicillins Allergy Muscle Verified 05/08/21 17:49 cramps Plan Diagnosis/Plan: Unchanged (Cystoscopy, left retrograde, left ureteroscopy laser lithotripsy stent placement) I have reviewed the history and physical and performed a pertinent physical examination on my patient. No changes have occurred unless specified.
--- NOTE | 2021-05-09 16:31 | W.PM.OPN ---
Operative Note Operative Note Date of Service: 05/09/21 Narrative: PreOperative Diagnosis: distal left ureteric stone with hydroureteronephrosis Post Operative Diagnosis: inflamed distal left ureter with hydroureteronephrosis Procedure: - cystoscopy, left retrograde - left dilatation of ureteric orifice under fluoroscopy - left ureteroscopy - left stent placement Surgeon: Dr Jerzy Smalls Anesthesia: General Indications for procedure: 55-year-old male. Two day history left flank pain. CT scan with distal left 6 mm stone and hydroureteronephrosis with creatinine 1.75 Procedure: After informed consent was verified patient was brought to the operating placed in supine position. Anesthesia was administered per protocol. Patient was placed in modified dorsal lithotomy position and prepped and draped in a sterile fashion. Safety pause time-out and side of surgery confirmed. Antibiotics confirmed. A 22 Wallis[place] cystoscope was inserted per urethra. Bladder was normal in its entirety. Both ureteric orifices were in normal position. The left ureteric orifice was cannulated and a retrograde examination was performed. narrowing of left transmural ureter followed by left hydroureteronephrosis mild . A Sensor guidewire was placed up to the level of the renal pelvis under fluoroscopy. The rigid cystoscope was removed. A Dalton dilator was placed over the Sensor guidewire and used to dilate the ureteric orifice under fluoroscopy. The dilator was removed. The semi rigid ureteral scope was placed alongside the Sensor guidewire. inflamed left distal ureter, no stone noted. Proximal left hydroureteronephrosis. A 6 [place]isian by Twenty-six cm double-J stent was placed into the renal pelvis and bladder under a combination of fluoroscopy and direct visualization. The bladder was emptied. The patient tolerated the procedure well and was extubated in the operating room, and transferred in stable condition to the recovery area. Pathology: no stones Drains: 6 [place]is[place] by 26 cm double-J stent
[2021-05-09] MEDS: Phenazopyridine HCL 100 MG TABLET PO (18:33)
[2021-05-09] MEDS: cefTRIAXone sodium 1 GM in 0.9 % Sodium Chloride 50 ML IV (23:04)
[2021-05-09] MEDS: Enoxaparin Sodium 40 MG/0.4 ML SYRINGE SUBCUT (23:11)
[2021-05-10 04:00] VITALS: BP 135/72; PULSE 82; RESP 18; TEMP 36.5; O2SAT 95
[2021-05-10 06:24] LABS: Anion Gap 14 (12-20); Blood Urea Nitrogen 17 mg/dL (9-16); Carbon Dioxide 24 mmol/L (22-29); Chloride 108 mmol/L (96-108); Creatinine Clr Calc Pharmacy 67.9; Estimated Glomerular Filt Rate 57; Glucose Random 123 mg/dL (60-115); Potassium 4.1 mmol/L (3.3-5.1); Sodium 142 mmol/L (135-145)
[2021-05-10] MEDS: Lactated Ringers 1,000 ML 100 ML IVCONT (06:26)
[2021-05-10 07:20] VITALS: BP 138/82; PULSE 70; RESP 20; TEMP 36.7; O2SAT 94
[2021-05-10 08:05] LABS: Alanine Aminotransferase 53 U/L (0-40); Albumin Level 3.7 g/dL (3.5-5.0); Alkaline Phosphatase 68 U/L (39-117); Aspartate Amino Transferase 23 U/L (5-37); Bilirubin Direct 0.2 mg/dL (0.0-0.5); Bilirubin Total 0.5 mg/dL (0.0-1.0); Total Protein 6.7 g/dL (6.5-8.0)
[2021-05-10] MEDS: 0.9 % Sodium Chloride Flush 3 ML SYRINGE IVFLUSH (08:47)
[2021-05-10] MEDS: Multivitamin TABLET 1 TAB PO (08:47)
[2021-05-10 09:42] LABS: Appearance Urine HAZY; Color Urine YELLOW; Glucose Urine UA 100 MG/DL (NEG); Leukocyte Esterase Urine TRACE (NEG); Nitrite Urine POS (NEG); Urine Blood 3+ (NEG); Urine Ketones NEG (NEG); Urine Protein 2+ MG/DL (NEG-TRACE)
[2021-05-10 10:27] LABS: Bacteria Urine TRACE /LPF; Mucus Urine TRACE /LPF; RBC Urine TNTC /HPF (0); Squamous Epithelial Cell Urine TRACE /LPF
[2021-05-10 12:00] VITALS: BP 140/74; PULSE 97; RESP 18; TEMP 36.5; O2SAT 95
--- NOTE | 2021-05-10 12:11 | P.DS_ITS ---
DS: Providers Provider Date of Service: 05/10/21 Date of admission: 05/08/21 22:41 Primary care physician: Savannah Cabrera MD Consults: 05/08/21 22:39 Consult to Urology Routine Consulting Provider: Jerzy Smalls Reason for consultation: onstructing stone Has provider been notified: Yes DS: Diagnosis Discharge Diagnosis (1) Ureteric stone: Status: Acute DS: Summary Hospital Course Hospital Course: HPI:h&p pending Hospital course: Patient was admitted for possible obstructive uropathy and YUDITH-found to have leftUVJ stone , also started on IV antibiotic detail symptom of dysuria well as possible uti: Patient was seen by Urology: Patient code urinary stent-left ureter: Patient YUDITH improved with hydration stent placement. AKA is improving, urology recommended to Pyridium, also tylenol added for pain control. Will add Flomax to BPH(enlarged prostate noted onCT): Further management outpatient as per PCP and Urology. Patient was encouraged to hydrate well. Monitor BMP with PCP. Above management discussed with the patient in detail length he understand and in agreement with the above plan, time spent 50 minutes and 50% time spent on counseling. Significant findings: As above. Procedures performed: None. Treatment and response: As above. Complications: None. Time Spent with Patient Time attestation: Total time spent providing and/or coordinating discharge services: Discharge coordination time: Greater than 30 minutes Quality: Stroke Does the patient have a stroke diagnosis?: No Physical Exam Vital Signs: Vital Signs: Last Vital Signs Temp 98.1 F 05/10/21 07:20 Pulse 70 05/10/21 07:20 Resp 20 05/10/21 07:20 BP 138/82 05/10/21 07:20 Pulse Ox 94 05/10/21 07:20 BMI result Body Mass Index 31.9 Appearance: Alert.? Oriented X3.? not in distress.? Eyes: Pupils equal, round and reactive to light.? Sclera nonicteric.? ENT: Pharynx normal.? Moist mucous membranes. cvs: rrr, [id number] . res: clear to auscultation ,no rhonchii or wheezing abd: no rebound or guarding ,nt, bs present. ext pulses present , no cyanosis . neuro: axo3 , nonfocal.? DS: Data Data Completed and Pending Labs on day of discharge: Laboratory Results - last 24 hr 05/10/21 05/10/21 05:12 09:30 Sodium 142 Potassium 4.1 Chloride 108 Carbon Dioxide 24 Anion Gap 14 BUN 17 H Creatinine 1.32 Estim Creat Clear Calc 67.9 Estimated GFR 57 Random Glucose 123 H Calcium 9.0 D Total Bilirubin 0.5 Direct Bilirubin 0.2 AST 23 D ALT 53 H Alkaline Phosphatase 68 Total Protein 6.7 D Albumin 3.7 Urine Color YELLOW Urine Appearance HAZY Urine pH 6.0 Ur Specific [place] 1.020 Urine Protein 2+ H Urine Glucose (UA) 100 H Urine Ketones NEG Urine Blood 3+ H Urine Nitrite POS H Ur Leukocyte Esterase TRACE H Urine RBC TNTC H Urine WBC 1-4 Ur Squamous Epith Cells TRACE Urine Bacteria TRACE Urine Mucus TRACE Additional Comments Additional comments: CT/CT abdomen pelvis wo con IMPRESSION: 7 x 3 mm obstructing distal left ureteral calculus. Nonobstructing 3 mm left lower pole renal calculus. Other incidental findings as described above including hepatic steatosis and mild BPH ? Fleischner guidelines were followed. Discharge Plan Discharge Patient Disposition: Home, Self-Care Discharge Diagnosis: yudith, nephrolithasis, obstructive uropathy status post stent,possible uti,Possible bph. Referrals: Jerzy Smalls MD [Physician] - 1 Week (follow up outpatiently) Savannah Cabrera MD [Primary Care Provider] - 1 Week Discharge Medications: New tamsulosin 0.4 mg Capsule 0.4 mg PO DAILY Qty: 30 0RF phenazopyridine [Pyridium] 100 mg tablet 100 mg PO BID PRN (Reason: pain) Qty: 6 0RF acetaminophen [Tylenol] 325 mg tablet 650 mg PO Q6H PRN (Reason: pain) Qty: 10 0RF cefuroxime axetil 250 mg tablet 250 mg PO Q12H Qty: 12 0RF Continued multivitamin Tablet 1 tab PO DAILY 0RF Discharge Orders: Discharge Order (Routine); Ordered 05/10/21 Ordered By: Soila Keller Diet: advance to usual diet Activity on Discharge: As tolerated Stand Alone Forms: Patient Portal Discharge page Care Plan Goals: Patient was admitted for possible obstructive uropathy and YUDITH-found to have leftUVJ stone , also started on IV antibiotic detail symptom of dysuria well as possible uti: Patient was seen by Urology: Patient code urinary stent-left ureter: Patient YUDITH improved with hydration stent placement. AKA is improving, urology recommended to Pyridium, also tylenol added for pain control. Will add Flomax to BPH(enlarged prostate noted onCT): Further management outpatient as per PCP and Urology. Patient was encouraged to hydrate well. Monitor BMP with PCP. Health Concerns: As above. Plan of Treatment: As above. Assessment: As above. Discharge Date/Time: 05/10/21 13:42
[2021-05-10] MEDS: Tamsulosin HCL 0.4 MG CAPSULE PO (12:46)
--- NOTE | 2021-05-10 16:15 | HO.POSTANES ---
Post Anesthesia Evaluation Post Anesthesia Evaluation Vital Signs: Vital Signs Temp Pulse Resp BP Pulse Ox 05/10/21 12:00 97.7 F 97 18 140/74 H 95 05/10/21 07:20 98.1 F 70 20 138/82 94 Anesthesia: General LMA Mental Status: Awake Pain Control: Satisfactory Nausea/Vomiting: None Hydration: Adequate Anesthesia-Related Issues: No Anes. Related Issues
== END 2021-05-10 13:42 | disposition home or self-care (01) | DRG 661 ==
LOC: HO.ED 05-09 00:52 → HO.EDOVER 05-09 02:01 → HO.S3 05-09 15:58
PROVIDERS: Internal Medicine; Nurse Practitioner Family; Urology; Admitting Provider Internal Medicine; Emergency Provider Emergency Medicine Emergency Medical Services; PCP Internal Medicine; Visit Provider Internal Medicine
PROC: 0T778DZ Dilation of Left Ureter with Intraluminal Device, Via Natural or Artificial Opening Endoscopic (ICD-10-PCS; principal; 2021-05-09 16:30)
DX: N13.6 Pyonephrosis (principal); N17.9 Acute kidney failure, unspecified; E87.5 Hyperkalemia; E66.01 Morbid (severe) obesity due to excess calories; Z68.32 Body mass index [BMI] 32.0-32.9, adult; Z20.822 Contact with and (suspected) exposure to COVID-19; Z88.0 Allergy status to penicillin; Z79.899 Other long term (current) drug therapy
CPT/HCPCS: 36415; 74176; 80048; 80053; 80076; 81001; 85025; 87086; 87635; 93005; 96360; 96372; 99285; C1758; C1769; C2617; J0696; J1100; J1650; J1885; J1956; J2250; J2405; J3010; Q9967

== ENCOUNTER → 2021-05-20 12:57 | Outpatient (BNVA) | payer OTHER, SELFPAY | PROVIDERS: PCP Internal Medicine; Visit Provider Urology | DX: Z48.816 Encounter for surgical aftercare following surgery on the genitourinary system (principal); Z87.442 Personal history of urinary calculi | CPT/HCPCS: 52310 ==

== ENCOUNTER 2021-06-30 08:26 | Outpatient (REF) | payer OTHER, SELFPAY ==
--- NOTE | ~2021-06-30 | US_ITS ---
EXAMINATION: US RETROPERITONEAL LIMITED (RENAL ONLY) CLINICAL INFORMATION: Calculus of ureter. COMPARISON: CT abdomen and pelvis without contrast 05/08/2021. TECHNIQUE: Real-time imaging of the kidneys. FINDINGS: RIGHT KIDNEY: 11.5 x 4.5 x 5.3 cm (SAG x AP x TRV). The kidney is normal in size, contour, and echogenicity. Renal cortical thickness is normal. There is a 2 mm echogenic density in the midpole with twinkle artifact questionable for a small stone. No focal parenchymal lesions or hydronephrosis. LEFT KIDNEY: 11.8 x 4.8 x 4.9 cm (SAG x AP x TRV). The kidney is normal in size, contour, and echogenicity. Renal cortical thickness is normal. No calculi or focal parenchymal lesions. No hydronephrosis. US/US renal BI IMPRESSION: Question small right renal stone. Normal left kidney. Hydronephrosis no longer seen.
== END 2021-06-30 08:27 | disposition home or self-care (01) ==
LOC: HO.US 08:26
PROVIDERS: Visit Provider Urology
DX: N20.1 Calculus of ureter (principal)
CPT/HCPCS: 76775

== ENCOUNTER 2022-11-15 13:23 | Emergency (ER) | payer OTHER, SELFPAY ==
--- NOTE | ~2022-11-15 | CT_ITS ---
EXAMINATION: CT ABDOMEN AND PELVIS WITHOUT CONTRAST CLINICAL INFORMATION: R flank pain, hx nephrolithiasis. COMPARISON: 07/08/2021. TECHNIQUE: Multidetector volumetric imaging was performed from the superior aspect of the liver through the pubic symphysis without contrast per renal stone protocol. Sagittal and coronal reformatted images were obtained on the technologist workstation. This CT examination was performed using dose optimization techniques as appropriate, variously including the following: *Automated exposure control *Adjustment of mA and/or kV according to patient size (this includes techniques or standardized protocols for targeted exams where dose is matched to indication/reason for exam; i.e. extremities or head) *Use of iterative reconstruction technique DLP: 628 mGy-cm. FINDINGS: LUNG BASES: Minimal dependent atelectasis LIVER, GALLBLADDER, BILIARY TREE: Diffuse fatty infiltration of the liver with mild focal fatty sparing adjacent to the gallbladder fossa. No focal suspicious hepatic mass lesion The gallbladder is unremarkable with no evidence of radiopaque gallstones, gallbladder wall thickening, or obvious pericholecystic inflammatory changes. PANCREAS: Unremarkable. SPLEEN: Unremarkable. ADRENAL GLANDS: Unremarkable. KIDNEYS AND URETERS: The kidneys are normal in size, shape, and attenuation. No hydronephrosis, or intrarenal calculi seen. No perinephric stranding. There is very slight fullness to the right ureter extending up to a 5 mm calcification at the right ureterovesicular junction best appreciated on the thin slice images. BLADDER: Unremarkable. GASTROINTESTINAL TRACT: A few scattered colonic diverticula are seen but no colonic wall thickening or pericolonic inflammatory changes to suggest diverticulitis. Normal-appearing appendix in the right lower quadrant. ABDOMINAL WALL: Tiny fat-containing umbilical hernia LYMPHOVASCULAR STRUCTURES: Mild vascular calcification within the aorta iliac system. No bulky adenopathy. PELVIC VISCERA: Unremarkable. OSSEUS STRUCTURES: Unremarkable. CT/CT abdomen pelvis wo IV con IMPRESSION: Mild fullness to the right ureter extending up to a 5 mm calcification at the right ureterovesicular junction best appreciated on the thin slice images.
[2022-11-15 14:26] VITALS: BP 158/92; PULSE 86; RESP 18; TEMP 36.6; O2SAT 98; BMI 33.9
--- NOTE | 2022-11-15 14:28 | ED.MALEGU ---
HPI - Male Genitourinary General Chief complaint: Urogenital-Male Stated complaint: back pain/ kidney stone? Time Seen by Provider: 11/15/22 15:51 Source: patient and family () Mode of arrival: ambulatory Limitations: no limitations History of Present Illness HPI Narrative: Patient is a 57-year-old male presenting to the emergency department with complaint of right flank pain radiating to right lower abdomen and groin for the past week. Patient reports pain has fluctuated in intensity, last night was most severe episode which he rates at 20/10. Current pain 7/10. Took ibuprofen at home. He denies any nausea or vomiting. Denies fevers. Does report some dysuria but denies any hematuria. Reports history of kidney stones in the past and had stent placed in April of 2021. The pain feels similar to prior kidney stones. Denies any concern for STIs. MD Complaint: other (Right flank pain) Onset (ago): week(s) Duration: intermittent Location: right flank Radiation: right inguinal region and abdomen Severity scale (1-10): 7 Quality: sharp Relieving factors: none Exacerbating factors: none Context: other (History nephrolithiasis) Associated symptoms: Reports dysuria Related Data Home Medications Medication Instructions Recorded Confirmed multivitamin 1 tab PO DAILY 05/08/21 05/08/21 Previous Rx's Medication Instructions Recorded acetaminophen 325 mg tablet 650 mg (2 x 325 mg) PO Q6H PRN 05/10/21 (Tylenol) pain #10 tabs cefuroxime axetil 250 mg tablet 250 mg PO Q12H #12 tabs 05/10/21 phenazopyridine 100 mg tablet 100 mg PO BID PRN pain 6 doses #6 05/10/21 (Pyridium) tabs tamsulosin 0.4 mg capsule 0.4 mg PO DAILY #30 caps 05/10/21 ondansetron 4 mg disintegrating 4 mg PO Q8H PRN nausea and 11/15/22 tablet vomiting #14 tabs oxycodone 5 mg tablet 5 mg PO Q8H PRN pain #8 tabs 11/15/22 prednisone 20 mg tablet 40 mg (2 x 20 mg) PO DAILY #10 tabs 11/15/22 tamsulosin 0.4 mg capsule 0.4 mg PO BEDTIME #14 caps 11/15/22 Allergies Allergy/AdvReac Type Severity Reaction Status Date / Time Penicillins Allergy Muscle Verified 05/20/21 13:03 cramps Review of Systems Review of Systems: As per HPI. Yes all other systems are reviewed and are negative Constitutional: Constitutional: Reports as per HPI [facility] Past Medical History Medical History No known health problems Surgical History No pertinent past surgical history Family History Family History Other No family history of coronary artery disease Social History Social History Household Members: Spouse Housing: House Do you presently have visiting nurse or other home services: No Alcohol intake: current Alcohol intake frequency: does not drink Patient Tobacco Use Status: Never used Tobacco Smoked in Last 30 Days: No Use of substances other than those prescribed or required for medical reasons: No Advance Directives: Yes Advance Directives on File: Yes Advance Directives Date on File: 05/09/21 service: No Current occupational status: employed Physical Exam Vital Signs: Vital Signs: Last Vital Signs Temp 98 F 11/15/22 14:26 Pulse 86 11/15/22 14:26 Resp 18 11/15/22 14:26 BP 158/92 H 11/15/22 14:26 Pulse Ox 98 11/15/22 14:26 O2 Del Method Room Air 11/15/22 14:26 BMI result Body Mass Index 33.9 .Vital signs have been reviewed and appear to be correct. Blood pressure elevated. Heart rate normal. Respiratory rate normal. Temperature normal. Oxygen saturation normal. Const: General: cooperative, healthy appearing and no acute distress Orientation/consciousness: oriented to person, oriented to place, oriented to time and patient oriented x3 Limitations: no limitations HEENT: Head: Yes normocephalic and Yes atraumatic Ears: external ears normal General nose exam: Normal external nose present Face and sinus: Yes face symmetric Mouth: oropharynx normal and moist mucous membranes Throat: Yes uvula midline Eyes: Pupils: Equal, round and reactive pupils present Neck: Neck: Yes normal visual inspection and Yes supple Resp: Effort & Inspection: normal respiratory effort and able to speak in complete sentences Auscultation: clear to auscultation bilaterally Cardio: Rate: regular rate Rhythm: regular rhythm Heart sounds: S1 normal heart sound present and S2 normal heart sound present GI: Palpation (GI): Soft to palpation and nontender Auscultation: normoactive bowel sounds : General: Yes CVA tenderness on the right Back/Spine/Pelvis: Back: CVA tenderness Skin: General skin exam: elasticity normal and turgor normal Neuro: General: oriented to person, oriented to place, oriented to time, patient oriented x3, moves all extremities, no focal motor deficits and CN's II-XI intact bilaterally Cranial nerves: Yes Equal, round and reactive pupils present Cognition (Neuro): normal cognition Extrem: General: Yes full ROM, Yes no pedal edema and Yes no calf tenderness Psych: Mental Status: mental status grossly normal Affect: normal affect Thought process: Normal thought process present Course Course Course Narrative: RME: 57 yold male presnts to the ED for right flank pain with Dysuria. patient states pmh of kidney stones. labs ordered Medical Decision Making Medical Decision Making [facility] Narrative: Patient is a 57-year-old male presenting to the emergency department with complaint of right flank pain radiating to right lower abdomen and groin for the past week. On exam patient is awake, A+Ox3, VS WNL, afebrile, normal neurological exam without focal deficits, abdomen soft and nontender, right CVA tenderness. Given reported symptoms and physical exam findings, initial differential includes UTI, pyelonephritis, renal colic. Labs notable for no leukocytosis, no YUDITH, no other electrolyte abnormalities. No evidence of infection on UA. CT notable for 5mm calculi at right UVJ. My interpretation is in agreement with the radiologist's interpretation. Results discussed with patient and all questions answered. Consult with Dr. Duarte who is comfortable with patient going home on prednisone, tamsulosin, pain control and follow up outpatient in the office this week. Patient provided with urine strainer. Return precautions discussed at bedside. Patient verbalized understanding of and agreement with plan. Differential Diagnosis Differential Diagnoses: The differential diagnosis associated with the presentation includes As per [facility]. Admission/Observation Consideration of admission/observation: Escalation of care including admission/observation considered Consult Healthcare Provider Management of the patient was discussed with: Drill Foreman (Dr. Duarte) Lab Data [facility] Lab Attestation statement: I reviewed the patient's lab results. As per [facility]. 11/15/22 14:45 11/15/22 14:45 Labs: Lab Results 11/15/22 11/15/22 Range/Units 14:45 14:50 WBC 7.0 (4.8-10.8) X10*3/uL RBC 5.14 (4.60-5.80) X10*6/uL Hgb 15.5 (14.0-18.0) g/dl Hct 46.0 (42.0-52.0) % MCV 89.5 (80.0-98.0) fL MCH 30.2 (27.0-33.0) pg MCHC 33.7 (31.0-36.0) g/dl RDW 13.2 (11.0-16.0) % Plt Count 258 (160-400) X10*3/uL MPV 10.2 (9.4-12.4) fL Immature Gran % (Auto) 0.1 (0.0-0.4) % Neut % (Auto) 54.6 (45-73) % Lymph % (Auto) 29.5 (20-40) % [place] % (Auto) 12.2 H (2-11) % Eos % (Auto) 3.0 (0-4) % Baso % (Auto) 0.6 (0-2) % Lymph # (Auto) 2.1 (1.2-4.9) X10*3/uL [place] # (Auto) 0.9 (0.1-1.2) X10*3/uL Eos # (Auto) 0.2 (0.0-0.4) X10*3/uL Baso # (Auto) 0.0 (0.0-0.2) X10*3/uL Abs Immat Gran (auto) 0.01 (0.00-0.03) X10*3/uL Absolute Neuts (auto) 3.8 (2.0-8.3) x10*3/uL Absolute Nucleated RBC 0.000 (0.0-0.012) X10*3/uL Nucleated RBC % (auto) 0.0 (0.0-0.2) /100WBC Sodium 139 (135-145) mmol/L Potassium 4.1 (3.3-5.1) mmol/L Chloride 109 H (96-108) mmol/L Carbon Dioxide 22 (22-29) mmol/L Anion Gap 12 (12-20) BUN 16 (9-16) mg/dL Creatinine 1.21 (0.5-1.4) mg/dL Estim Creat Clear Calc 74.5 Estimated GFR > 60 Random Glucose 83 (60-115) mg/dL Calcium 9.2 (8.4-10.2) mg/dL Total Bilirubin 0.6 (0.0-1.0) mg/dL AST 26 (5-37) U/L ALT 41 H (0-40) U/L Alkaline Phosphatase 73 (39-117) U/L Total Protein 7.8 (6.5-8.0) g/dL Albumin 4.1 (3.5-5.0) g/dL Urine Color Yellow Urine Appearance Clear Urine pH 5.5 (5.0-9.0) Ur Specific [place] 1.010 (1.005-1.025) Urine Protein Negative (Neg-Trace) mg/dL Urine Glucose (UA) Negative (Negative) mg/dL Urine Ketones Negative (Negative) mg/dL Urine Blood Negative (Negative) Urine Nitrite Negative (Negative) Ur Leukocyte Esterase Trace H (Negative) Urine RBC 0-2 (0-2) /HPF Urine WBC 0-5 (0-5) /HPF Ur Squamous Epith Cells 0-2 (0-2) /HPF Urine Bacteria None Seen (None Seen) Hyaline Casts 0-2 (0-2) /LPF Independent Interpretation I performed an independent interpretation of an: CT Scan Interpretation: 5 mm calculi at right UVJ Radiology Impression Discussion of test interpretation with radiology: I have reviewed the radiologist's reading. Radiologist Impression: CT/CT abdomen pelvis wo IV con IMPRESSION: Mild fullness to the right ureter extending up to a 5 mm calcification at the right ureterovesicular junction best appreciated on the thin slice images. Independent Historian Clinical information obtained from an independent historian. History obtained from or confirmed by: Spouse External Record Review External record reviewed: Inpatient record, Office record and Outpatient record Prescription Management I considered prescription management with: Pain Medication and Other Discharge Plan Discharge Clinical Impression: Ureteric stone Patient Disposition: Home, Self-Care Instructions: How to Strain Your Urine (ED), Ureteral Stones (ED) Additional Instructions: You were evaluated in the emergency department for flank pain. Your CT scan showed evidence of a stone in your right ureter. The stone is 5 mm which may or may not pass on its own. Your are being provided with a urine strainer to use at home, instructions are included in your discharge paperwork. You are being prescribed prednisone to decrease inflammation, tamsulosin to on lab 0 the stone to pass more easily, and oxycodone as needed for severe pain. You can also take 600 mg of ibuprofen every 6 hours as needed for pain. Your being prescribed ondansetron which you can use every 8 hours as needed for nausea. You are being referred to Urology, please call them 1st thing Wednesday morning for an appointment this week. Return to the emergency department if you develop worsening pain, persistent vomiting, fever 100.4? or greater, inability to urinate, or any other concerning symptoms. Prescriptions: New tamsulosin 0.4 mg capsule 0.4 mg PO BEDTIME Qty: 14 0RF prednisone 20 mg tablet 40 mg PO DAILY Qty: 10 0RF ondansetron 4 mg tablet,disintegrating 4 mg PO Q8H PRN (Reason: nausea and vomiting) Qty: 14 0RF oxycodone 5 mg tablet 5 mg PO Q8H PRN (Reason: pain) Qty: 8 0RF Rx Instructions: Partial Fill upon patient request. No Action multivitamin Tablet 1 tab PO DAILY tamsulosin 0.4 mg Capsule 0.4 mg PO DAILY Qty: 30 0RF phenazopyridine [Pyridium] 100 mg tablet 100 mg PO BID PRN (Reason: pain) Qty: 6 0RF acetaminophen [Tylenol] 325 mg tablet 650 mg PO Q6H PRN (Reason: pain) Qty: 10 0RF cefuroxime axetil 250 mg tablet 250 mg PO Q12H Qty: 12 0RF Referrals: [facility] [Provider Group] Interventions: ED Discharge Assessment Last Done: 11/15/22 18:04 Discharge Date/Time: 11/15/22 18:04
[2022-11-15 14:56] LABS: MANUAL DIFF FLAG NO
[2022-11-15 14:57] LABS: Basophils Percent Auto 0.6 % (0-2); Eosinophils Absolute Auto 0.2 X10*3/uL (0.0-0.4); Hemoglobin 15.5 g/dl (14.0-18.0); Imm Gran Abs Auto 0.01 X10*3/uL (0.00-0.03); Imm Gran Pct Auto 0.1 % (0.0-0.4); Lymphocytes Absolute Auto 2.1 X10*3/uL (1.2-4.9); Lymphocytes Percent Auto 29.5 % (20-40); Mean Corpuscular HGB Conc 33.7 g/dl (31.0-36.0); Mean Corpuscular Hemoglobin 30.2 pg (27.0-33.0); Mean Corpuscular Volume 89.5 fL (80.0-98.0); Mean Platelet Volume 10.2 fL (9.4-12.4); Monocytes Absolute Auto 0.9 X10*3/uL (0.1-1.2); Monocytes Percent Auto 12.2 % (2-11); Neutrophils Absolute Auto 3.8 x10*3/uL (2.0-8.3); Neutrophils Percent Auto 54.6 % (45-73); Platelet Count 258 X10*3/uL (160-400); Red Blood Count 5.14 X10*6/uL (4.60-5.80); Red Cell Distribution Width 13.2 % (11.0-16.0)
[2022-11-15 14:58] LABS: Appearance Urine Clear; Color Urine Yellow; Glucose Urine UA Negative (Negative); Leukocyte Esterase Urine Trace (Negative); Nitrite Urine Negative (Negative); PH 5.5 (5.0-9.0); UMIC TRIGGER UACC YES; Urine Blood Negative (Negative); Urine Ketones Negative (Negative); Urine Protein Negative (Neg-Trace)
[2022-11-15 15:01] LABS: Bacteria Urine None Seen (None Seen); Hyaline Casts Urine 0-2 /LPF (0-2); RBC Urine 0-2 /HPF (0-2); Squamous Epithelial Cell Urine 0-2 /HPF (0-2); WBC Urine 0-5 /HPF (0-5)
[2022-11-15 15:16] LABS: Alanine Aminotransferase 41 U/L (0-40); Albumin Level 4.1 g/dL (3.5-5.0); Alkaline Phosphatase 73 U/L (39-117); Anion Gap 12 (12-20); Aspartate Amino Transferase 26 U/L (5-37); Bilirubin Total 0.6 mg/dL (0.0-1.0); Blood Urea Nitrogen 16 mg/dL (9-16); Calcium 9.2 mg/dL (8.4-10.2); Carbon Dioxide 22 mmol/L (22-29); Chloride 109 mmol/L (96-108); Creatinine Clr Calc Pharmacy 74.5; Estimated Glomerular Filt Rate > 60; Glucose Random 83 mg/dL (60-115); Potassium 4.1 mmol/L (3.3-5.1); Sodium 139 mmol/L (135-145); Total Protein 7.8 g/dL (6.5-8.0)
== END 2022-11-15 18:04 | disposition home or self-care (01) ==
PROVIDERS: Physician Assistant; Emergency Provider Internal Medicine; PCP Internal Medicine
DX: N20.1 Calculus of ureter (principal); M54.50 Low back pain, unspecified; Z79.899 Other long term (current) drug therapy
CPT/HCPCS: 36415; 74176; 80053; 81001; 85025; 99284

== ENCOUNTER 2024-05-15 10:12 | Outpatient (AMB) | payer OTHER, SELFPAY ==
[2024-05-15 10:24] VITALS: BP 132/82; PULSE 96; TEMP 37.1; O2SAT 95; BMI 36.0
--- NOTE | 2024-05-15 10:24 | A.OFFPC_ITS ---
Vital Signs 05/15/24 10:24 Height 5 ft 6 in Weight 223 lb BMI 36.0 BP 132/82 Blood Pressure Location Lt brachial Position Sitting Pulse 96 Pulse Source Pulse Oximeter Temp 98.7 F Temp Source Oral Pulse Oximetry (%) 95 Oxygen Delivery Method Room Air Intake Visit Reasons: [facility] Intake Note: Pt is here today for New patient visit PE. Pt states that he needs refill on his BP med. Allergies Penicillins Allergy (Verified 05/15/24 10:30) Muscle cramps Medication List - Last Reconciled 05/15/24 by Veronica Perez MD multivitamin 1 tab PO DAILY valsartan 160 mg PO DAILY Tobacco use date assessed: 05/15/24 Dental Screening Dental Screen Date: 05/15/24 Did you have a dental visit in the last 12 months?: Yes Did you have a dental problem in the last 6 months where you did not have access to dental care?: No Was dental information given to patient?: Patient has dentist HPI [facility] HPI Details Pt presents for [employer] PE. Pt c/o chronic tinnitus and some hearing loss. Pt has hearing test annually at work. 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 1. Little interest or pleasure in doing things: not at all 2. Feeling down, depressed, or hopeless: not at all 3. Trouble falling or staying asleep, or sleeping too much: not at all 4. Feeling tired or having little energy: not at all 5. Poor appetite or overeating: not at all 6. Feeling bad about yourself - or that you are a failure or have let yourself or your family down: not at all 7. Trouble concentrating on things, such as reading the newspaper or watching television: not at all 8. Moving or speaking so slowly that other people could have noticed. Or the opposite - being so fidgety or restless that you have been moving around a lot more than usual: not at all 9. Thoughts that you would be better off or of hurting yourself in some way: not at all Total score: 0 Depression Screening Interpretation: Negative Depression Screening Done: Yes 87117 - PHQ-9 Billing: Yes Source: Developed by Drs. Nghia Reeves, Mer De Leon, Filippo Beck and colleagues, with an educational zainab from [employer]. Thrive Questionnaire Date Thrive assessed: 05/15/24 I am a: Patient What is your living situation today?: I have a steady place to live Within the past 12 months, did the food you bought not last and you didn't have the money to get more?: Never true Within the past 12 months, did you worry whether your food would run out before you got money to buy more?: Never true Do you have trouble paying for medicines?: No Do you have trouble getting transportation to medical appointments?: No Do you have trouble paying your heating and electricity bill?: No Do you have trouble taking care of your child, family member or friend?: No Do you have trouble with day-to-day activities such as bathing, preparing meals, shopping, managing finances, etc.?: No Are you currently unemployed and looking for a job?: No Are you interested in more education?: No Please select the resources that you would like help with: None Currently or been in a relationship where the following occur: No concerns reported THRIVE Score: 0 AUDIT C Alcohol Use Questionnaire (AUDIT-C) 1. How often do you have a drink containing alcohol?: Never 3. How often do you have six or more drinks on one occasion?: Never Total Score: 0 DIANA-7 AMB Questionnaire DIANA-7 Date DIANA - 7 assessed: 05/15/24 Feeling nervous, anxious, or on edge: 0 = Not at all Not being able to stop or control worryin = Not at all Worrying too much about different things: 0 = Not at all Trouble relaxin = Not at all Being so restless that it is hard to sit still: 0 = Not at all Becoming easily annoyed or irritable: 0 = Not at all Feeling afraid as if something awful might happen: 0 = Not at all Total DIANA-7 score (0-4 normal; 5-9 mild; 10-14 moderate; 15-21 severe): 0 Source: Developed by Drs. Nghia Reeves, Mer De Leon, Filippo Beck and colleagues, with an educational zainab from [employer]. DIANA-7 Assessment Billing DIANA-7 Assessment Tool: DIANA-7 Assessment 88626 Review of Systems Const All systems reviewed & are unremarkable except as noted in HPI and below Reports no additional complaints Eyes Reports no additional complaints ENT Reports no additional complaints Card Reports no additional complaints Resp Reports no additional complaints GI Reports no additional complaints Physical exam (Primary Care) Vital Signs: Last Vital Signs Temp 98.7 F 05/15/24 10:24 Pulse 96 05/15/24 10:24 BP 132/82 05/15/24 10:24 Pulse Ox 95 05/15/24 10:24 Oxygen Delivery Method Room Air 05/15/24 10:24 BMI result Body Mass Index 36.0 Tobacco/Smoking Status: Tobacco use Status Tobacco use date assessed 05/15/24 05/15/24 10:38 Patient Tobacco Use Status Never used Tobacco 05/15/24 11:11 e-Cigarette/Vaping Use Never Used 05/15/24 11:11 PHQ-9: PHQ-9 Score PHQ-9: Total score 0 05/15/24 11:03 Depression Screening Interpretation: Negative Thrive Assessment: Date of Thrive Assessment Date Thrive assessed 05/15/24 05/15/24 10:38 Currently or been in a relationship where the following occur: No concerns reported Const General: no acute distress HENMT Head: Yes normal to inspection General nose exam: Normal external nose present Face and sinus: Yes normal facial exam Mouth: Normal oral and palatal mucosa present Eyes General: appearance normal, both eyes and all related structures Neck Neck: Yes no lymphadenopathy and Yes supple Resp Effort & Inspection: normal respiratory effort Auscultation: clear to auscultation bilaterally Cardio Rhythm: regular rhythm Heart sounds: S1 normal heart sound present and S2 normal heart sound present GI Inspection: Yes normal to inspection Palpation (GI): Soft to palpation Percussion: Yes normal to percussion Auscultation: normal bowel sounds Coding Level of Care Code Est Pt Level 4 (16875) Diagnoses HTN (hypertension) I10 Annual physical exam Z00.00 Hx of colonoscopy Z98.890 Sleep apnea G47.30 Acute kidney injury N17.9 Additional Codes DIANA-7 Assessment Billing - DIANA-7 Assessment Tool: DIANA-7 Assessment 54264 ([id number]) PHQ-9 - 20647 - PHQ-9 Billing: Yes ([id number]) Assessment & Plan Assessment & Plan (1) HTN (hypertension): Code(s): I10 - Essential (primary) hypertension Category: Medical Plan: Start Valsartan 160 mg QD, (2) Annual physical exam: Code(s): Z00.00 - Encounter for general adult medical examination without abnormal findings Category: Medical Plan: Well-balanced diet regular physical activity discussed with the patient (3) Hx of colonoscopy: Comment: 2019 polyps, repeat 07/2022 [facility] no TA, recheck 3-5 yrs Code(s): Z98.890 - Other specified postprocedural states Category: Surgical Plan: Follow-up with GI (4) Sleep apnea: Comment: on Cpap, compliant Code(s): G47.30 - Sleep apnea, unspecified Category: Medical Plan: Continue CPAP (5) Acute kidney injury: Code(s): N17.9 - Acute kidney failure, unspecified Category: Medical Plan: Follow-up with urology Orders: Orders Comprehensive [place]. Panel Fast 1 Week I10 - Essential (primary) hypertension, N17.9 - Acute kidney failure, unspecified Lipid Panel 1 Week I10 - Essential (primary) hypertension, N17.9 - Acute kidney failure, unspecified TSH reflex Free T4 1 Week I10 - Essential (primary) hypertension, N17.9 - Acute kidney failure, unspecified UA w Microscopic 1 Week I10 - Essential (primary) hypertension, N17.9 - Acute kidney failure, unspecified PSA,Total (Free>4and<10) 05/15/24 Z00.00 - Encounter for general adult medical examination without abnormal findings US renal BI 1 Week I10 - Essential (primary) hypertension, N17.9 - Acute kidney failure, unspecified Complete Blood Count Auto Diff 1 Week I10 - Essential (primary) hypertension, N17.9 - Acute kidney failure, unspecified Medications: New valsartan 160 mg PO DAILY 30 tabs 1RF
== END 2024-05-15 11:44 | disposition home or self-care (01) ==
LOC: HO.HMCC 10:13
PROVIDERS: PCP Internal Medicine; Visit Provider Internal Medicine
DX: Z00.00 Encounter for general adult medical examination without abnormal findings (principal); I10 Essential (primary) hypertension; Z98.890 Other specified postprocedural states; N17.9 Acute kidney failure, unspecified; G47.30 Sleep apnea, unspecified

== ENCOUNTER → 2024-05-15 10:12 | Outpatient (BNVA) | payer OTHER, SELFPAY | PROVIDERS: PCP Internal Medicine; Visit Provider Internal Medicine | DX: Z00.00 Encounter for general adult medical examination without abnormal findings (principal); I10 Essential (primary) hypertension; G47.30 Sleep apnea, unspecified; N17.9 Acute kidney failure, unspecified | CPT/HCPCS: 96127 ==

== ENCOUNTER 2024-05-26 06:41 | Outpatient (REF) | payer OTHER, SELFPAY ==
[2024-05-26 10:18] LABS: MANUAL DIFF FLAG NO
[2024-05-26 10:23] LABS: Appearance Urine Clear; Color Urine Dark Yellow; Glucose Urine UA Negative (Negative); Leukocyte Esterase Urine Negative (Negative); Nitrite Urine Negative (Negative); PH 5.5 (5.0-9.0); Specific Gravity - Urine 1.025 (1.005-1.025); Urine Blood Negative (Negative); Urine Ketones Trace mg/dL (Negative); Urine Protein Trace mg/dL (Neg-Trace)
[2024-05-26 10:26] LABS: Basophils Absolute Auto 0.1 X10*3/uL (0.0-0.2); Basophils Percent Auto 0.8 % (0-2); Eosinophils Absolute Auto 0.3 X10*3/uL (0.0-0.4); Eosinophils Percent Auto 3.7 % (0-4); Hematocrit 46.4 % (42.0-52.0); Hemoglobin 15.8 g/dl (14.0-18.0); Imm Gran Abs Auto 0.02 X10*3/uL (0.00-0.03); Imm Gran Pct Auto 0.3 % (0.0-0.4); Lymphocytes Absolute Auto 3.3 X10*3/uL (1.2-4.9); Lymphocytes Percent Auto 42.5 % (20-40); Mean Corpuscular HGB Conc 34.1 g/dl (31.0-36.0); Mean Corpuscular Hemoglobin 30.5 pg (27.0-33.0); Mean Corpuscular Volume 89.6 fL (80.0-98.0); Mean Platelet Volume 11.3 fL (9.4-12.4); Monocytes Absolute Auto 0.7 X10*3/uL (0.1-1.2); Monocytes Percent Auto 9.3 % (2-11); Neutrophils Absolute Auto 3.3 x10*3/uL (2.0-8.3); Neutrophils Percent Auto 43.4 % (45-73); Platelet Count 259 X10*3/uL (160-400); Red Blood Count 5.18 X10*6/uL (4.60-5.80); Red Cell Distribution Width 13.2 % (11.0-16.0); White Blood Count 7.7 X10*3/uL (4.8-10.8)
[2024-05-26 10:29] LABS: Bacteria Urine None Seen (None Seen); RBC Urine 0-2 /HPF (0-2); Squamous Epithelial Cell Urine 0-2 /HPF (0-2); WBC Urine 0-5 /HPF (0-5)
[2024-05-26 10:53] LABS: Alanine Aminotransferase 145 U/L (0-40); Alkaline Phosphatase 76 U/L (39-117); Anion Gap 11 (12-20); Aspartate Amino Transferase 69 U/L (5-37); Bilirubin Total 0.7 mg/dL (0.0-1.0); Blood Urea Nitrogen 14 mg/dL (9-16); Calcium 9.2 mg/dL (8.4-10.2); Carbon Dioxide 23 mmol/L (22-29); Chloride 110 mmol/L (96-108); Cholesterol 188 mg/dL (<200); Estimated Glomerular Filt Rate > 60; Glucose Fasting 152 mg/dL (60-99); HDL Cholesterol 44 mg/dL (>40); LDL Cholesterol Calculated 120 mg/dL (<100); Sodium 140 mmol/L (135-145); Total Protein 7.3 g/dL (6.5-8.0); Triglycerides 124 mg/dL (<150)
[2024-05-26 11:07] LABS: PSA,Total (Free>4and<10) 0.93 ng/mL (0.00-4.00)
[2024-05-26 11:27] LABS: TSH reflex Free T4 3.19 uIU/mL (0.32-4.0)
== END 2024-05-26 06:42 | disposition home or self-care (01) ==
LOC: HO.HMGCLDS 06:41
PROVIDERS: PCP Internal Medicine; Visit Provider Internal Medicine
DX: Z00.00 Encounter for general adult medical examination without abnormal findings (principal); I10 Essential (primary) hypertension; N17.9 Acute kidney failure, unspecified; Z12.5 Encounter for screening for malignant neoplasm of prostate
CPT/HCPCS: 36415; 80053; 80061; 81001; 84153; 84443; 85025

== ENCOUNTER 2024-06-06 14:02 | Outpatient (REF) | payer OTHER, SELFPAY ==
--- NOTE | ~2024-06-06 | US_ITS ---
CLINICAL HISTORY: I10 - Essential (primary) hypertension US RENAL Comparison: None Findings: Right kidney measures 11 cm in length. Left kidney measures 11.2 cm in length. Mild cortical thinning bilaterally with no significant increased cortical echoes. No hydronephrosis, shadowing calculus or cortical mass lesion. Normal color Doppler. IMPRESSION: No hydronephrosis. This document has been electronically signed by: Yasmin Horan DO on 06/06/2024 21:23:32
== END 2024-06-06 14:03 | disposition home or self-care (01) ==
LOC: HO.HMGCX 14:02
PROVIDERS: PCP Internal Medicine; Visit Provider Internal Medicine
DX: I10 Essential (primary) hypertension (principal); N17.9 Acute kidney failure, unspecified
CPT/HCPCS: 76775

== ENCOUNTER → 2024-06-06 14:04 | Outpatient (BNV) | payer OTHER, SELFPAY | PROVIDERS: PCP Internal Medicine; Visit Provider Radiology Diagnostic Radiology | DX: I10 Essential (primary) hypertension (principal) | CPT/HCPCS: 76775 ==

== ENCOUNTER 2024-06-15 10:56 | Outpatient (AMB) | payer OTHER, SELFPAY ==
[2024-06-15 11:00] VITALS: BP 124/86; PULSE 95; RESP 18; TEMP 36.7; O2SAT 97; BMI 35.3
--- NOTE | 2024-06-15 11:00 | MHC.PC.OV ---
Vital Signs 06/15/24 11:00 Height 5 ft 6 in Weight 219 lb BMI 35.3 BP 124/86 Blood Pressure Location Lt brachial Position Sitting Respiration 18 Pulse 95 Pulse Source Pulse Oximeter Temp 98.0 F Temp Source Oral Pulse Oximetry (%) 97 Oxygen Delivery Method Room Air Intake Visit Reasons: 1m follow up Intake Note: Pt is here today for 1 month follow up visit. Allergies Penicillins Allergy (Verified 06/15/24 11:07) Muscle cramps Medication List - Last Reconciled 06/15/24 by Veronica Perez MD multivitamin 1 tab PO DAILY valsartan 160 mg PO DAILY Tobacco use date assessed: 06/15/24 Dental Screening Dental Screen Date: 05/15/24 HPI 1m follow up HPI Details Patient presents for a follow-up of hypertension. He has been tolerating valsartan and increasing physical activity. 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 1. Little interest or pleasure in doing things: not at all 2. Feeling down, depressed, or hopeless: not at all 3. Trouble falling or staying asleep, or sleeping too much: not at all 4. Feeling tired or having little energy: not at all 5. Poor appetite or overeating: not at all 6. Feeling bad about yourself - or that you are a failure or have let yourself or your family down: not at all 7. Trouble concentrating on things, such as reading the newspaper or watching television: not at all 8. Moving or speaking so slowly that other people could have noticed. Or the opposite - being so fidgety or restless that you have been moving around a lot more than usual: not at all 9. Thoughts that you would be better off or of hurting yourself in some way: not at all Total score: 0 Depression Screening Interpretation: Negative Depression Screening Done: Yes 03212 - PHQ-9 Billing: Yes Source: Developed by Drs. Nghia Reeves, Filippo Finch and colleagues, with an educational zainab from [employer]. Thrive Questionnaire Date Thrive assessed: 05/09/24 I am a: Patient What is your living situation today?: I have a steady place to live Within the past 12 months, did the food you bought not last and you didn't have the money to get more?: Never true Within the past 12 months, did you worry whether your food would run out before you got money to buy more?: Never true Do you have trouble paying for medicines?: No Do you have trouble getting transportation to medical appointments?: No Do you have trouble paying your heating and electricity bill?: No Do you have trouble taking care of your child, family member or friend?: No Do you have trouble with day-to-day activities such as bathing, preparing meals, shopping, managing finances, etc.?: No Are you currently unemployed and looking for a job?: No Are you interested in more education?: No Please select the resources that you would like help with: None Currently or been in a relationship where the following occur: No concerns reported THRIVE Score: 0 DIANA-7 AMB Questionnaire DIANA-7 Date DIANA - 7 assessed: 05/15/24 Source: Developed by Drs. Nghia Reeves, Mer De Leon, Filippo Beck and colleagues, with an educational zainab from [employer]. Review of Systems Const All systems reviewed & are unremarkable except as noted in HPI and below Eyes Reports no additional complaints ENT Reports no additional complaints Card Reports no additional complaints Resp Reports no additional complaints GI Reports no additional complaints Musc Reports no additional complaints Physical exam (Primary Care) Vital Signs: Last Vital Signs Temp 98.0 F 06/15/24 11:00 Pulse 95 06/15/24 11:00 Resp 18 06/15/24 11:00 BP 124/86 06/15/24 11:00 Pulse Ox 97 06/15/24 11:00 Oxygen Delivery Method Room Air 06/15/24 11:00 BMI result Body Mass Index 35.3 Tobacco/Smoking Status: Tobacco use Status Tobacco use date assessed 06/15/24 06/15/24 11:02 Patient Tobacco Use Status Never used Tobacco 06/15/24 11:02 e-Cigarette/Vaping Use Never Used 06/15/24 11:02 PHQ-9: PHQ-9 Score PHQ-9: Total score 0 06/15/24 12:48 Depression Screening Interpretation: Negative Thrive Assessment: Date of Thrive Assessment Date Thrive assessed 05/09/24 06/15/24 11:02 Currently or been in a relationship where the following occur: No concerns reported Const General: no acute distress HENMT Face and sinus: Yes normal facial exam Eyes General: appearance normal, both eyes and all related structures Neck Neck: Yes supple Resp Effort & Inspection: normal respiratory effort Auscultation: clear to auscultation bilaterally Cardio Rhythm: regular rhythm Heart sounds: S1 normal heart sound present and S2 normal heart sound present Coding Level of Care Code Est Pt Level 4 (38606) Diagnoses Hyperglycemia R73.9 HTN (hypertension) I10 Ureteric stone N20.1 Overweight E66.3 Sleep apnea G47.30 Additional Codes PHQ-9 - 03170 - PHQ-9 Billing: Yes ([id number]) Assessment & Plan Assessment & Plan (1) Hyperglycemia: Code(s): R73.9 - Hyperglycemia, unspecified Category: Medical Plan: ADA diet increase exercise weight loss discussed with the patient patient will return for fasting blood work including A1c (2) HTN (hypertension): Code(s): I10 - Essential (primary) hypertension Category: Medical Plan: Continue valsartan (3) Ureteric stone: Comment: s/p stent, normal renal ultrasound 04/2024 Code(s): N20.1 - Calculus of ureter Category: Medical Plan: We will continue to monitor for nephrolithiasis with annual renal ultrasound (4) Overweight: Code(s): E66.3 - Overweight Category: Medical Plan: Decreasing caloric intake increasing physical activity discussed with the patient (5) Sleep apnea: Comment: on Cpap, compliant Code(s): G47.30 - Sleep apnea, unspecified Category: Medical Plan: Continue CPAP Orders: Orders Hemoglobin A1c 3 Months I10 - Essential (primary) hypertension, R73.9 - Hyperglycemia, unspecified UA w Microscopic 3 Months I10 - Essential (primary) hypertension, R73.9 - Hyperglycemia, unspecified Basic Metabolic Panel Fasting Today R73.9 - Hyperglycemia, unspecified Hemoglobin A1c Today R73.9 - Hyperglycemia, unspecified Comprehensive [place]. Panel Fast 3 Months I10 - Essential (primary) hypertension, R73.9 - Hyperglycemia, unspecified Complete Blood Count Auto Diff 3 Months I10 - Essential (primary) hypertension, R73.9 - Hyperglycemia, unspecified Lipid Panel 3 Months I10 - Essential (primary) hypertension, R73.9 - Hyperglycemia, unspecified
== END 2024-06-15 11:56 | disposition home or self-care (01) ==
LOC: HO.HMCC 10:57
PROVIDERS: PCP Internal Medicine; Visit Provider Internal Medicine
DX: R73.9 Hyperglycemia, unspecified (principal); I10 Essential (primary) hypertension; N20.1 Calculus of ureter; E66.3 Overweight; G47.30 Sleep apnea, unspecified

== ENCOUNTER → 2024-06-15 10:56 | Outpatient (BNVA) | payer OTHER, SELFPAY | PROVIDERS: PCP Internal Medicine; Visit Provider Internal Medicine | DX: R73.9 Hyperglycemia, unspecified (principal); I10 Essential (primary) hypertension; E66.3 Overweight; Z68.35 Body mass index [BMI] 35.0-35.9, adult; G47.30 Sleep apnea, unspecified; Z87.442 Personal history of urinary calculi; Z79.899 Other long term (current) drug therapy; Z99.89 Dependence on other enabling machines and devices | CPT/HCPCS: 96127 ==

== ENCOUNTER 2024-06-23 06:30 | Outpatient (REF) | payer OTHER, SELFPAY ==
[2024-06-23 10:26] LABS: Estimated Average Glucose 146 mg/dL; Hemoglobin A1C 193.8837 umol/L; Hemoglobin A1c % 6.7 % (<6.0); Total Hemoglobin (HGBA1C) 3910.4178 umol/L
[2024-06-23 10:46] LABS: Anion Gap 10 (12-20); Blood Urea Nitrogen 24 mg/dL (9-16); Calcium 8.6 mg/dL (8.4-10.2); Carbon Dioxide 22 mmol/L (22-29); Chloride 111 mmol/L (96-108); Estimated Glomerular Filt Rate > 60; Glucose Fasting 135 mg/dL (60-99); Sodium 139 mmol/L (135-145)
== END 2024-06-23 06:31 | disposition home or self-care (01) ==
LOC: HO.HMGCLDS 06:30
PROVIDERS: PCP Internal Medicine; Visit Provider Internal Medicine
DX: R73.9 Hyperglycemia, unspecified (principal)
CPT/HCPCS: 36415; 80048; 83036

== ENCOUNTER 2024-09-12 06:27 | Outpatient (REF) | payer OTHER, SELFPAY ==
[2024-09-12 10:13] LABS: MANUAL DIFF FLAG NO
[2024-09-12 10:21] LABS: Appearance Urine Turbid; Glucose Urine UA Negative (Negative); PH 5.5 (5.0-9.0); Specific Gravity - Urine 1.025 (1.005-1.025)
[2024-09-12 10:22] LABS: Hemoglobin A1C 154.2280 umol/L; Total Hemoglobin (HGBA1C) 3906.4049 umol/L
[2024-09-12 10:43] LABS: Hematocrit 45.0 % (42.0-52.0); Hemoglobin 14.7 g/dl (14.0-18.0); Imm Gran Abs Auto 0.02 X10*3/uL (0.00-0.03); Imm Gran Pct Auto 0.3 % (0.0-0.4); Lymphocytes Absolute Auto 2.4 X10*3/uL (1.2-4.9); Mean Corpuscular HGB Conc 32.7 g/dl (31.0-36.0); Mean Corpuscular Hemoglobin 30.1 pg (27.0-33.0); Mean Corpuscular Volume 92.0 fL (80.0-98.0); NRBC Abs Auto 0.000 X10*3/uL (0.0-0.012); NRBC Pct Auto 0.0 /100WBC (0.0-0.2); Platelet Count 233 X10*3/uL (160-400); Red Blood Count 4.89 X10*6/uL (4.60-5.80); White Blood Count 7.6 X10*3/uL (4.8-10.8)
[2024-09-12 11:05] LABS: Alanine Aminotransferase 51 U/L (0-40); Albumin Level 4.1 g/dL (3.5-5.0); Alkaline Phosphatase 63 U/L (39-117); Anion Gap 15 (12-20); Aspartate Amino Transferase 38 U/L (5-37); Blood Urea Nitrogen 19 mg/dL (9-16); Calcium 8.6 mg/dL (8.4-10.2); Carbon Dioxide 22 mmol/L (22-29); Chloride 111 mmol/L (96-108); Cholesterol 169 mg/dL (<200); Estimated Glomerular Filt Rate > 60; HDL Cholesterol 41 mg/dL (>40); Potassium 3.9 mmol/L (3.3-5.1); Sodium 144 mmol/L (135-145); Total Protein 7.0 g/dL (6.5-8.0); Triglycerides 122 mg/dL (<150)
== END 2024-09-12 06:28 | disposition home or self-care (01) ==
LOC: HO.HMGCLDS 06:27
PROVIDERS: PCP Internal Medicine; Visit Provider Internal Medicine
DX: I10 Essential (primary) hypertension (principal); R73.9 Hyperglycemia, unspecified
CPT/HCPCS: 36415; 80053; 80061; 81001; 83036; 85025

== ENCOUNTER 2024-09-18 13:45 | Outpatient (AMB) | payer OTHER, SELFPAY ==
[2024-09-18 14:07] VITALS: BP 138/80; PULSE 86; RESP 18; TEMP 37; O2SAT 96; BMI 34.2
--- NOTE | 2024-09-18 14:07 | A.OFFPC_ITS ---
Vital Signs 09/18/24 14:07 Height 5 ft 6 in Weight 212 lb BMI 34.2 BP 138/80 Blood Pressure Location Lt brachial Position Sitting Respiration 18 Pulse 86 Pulse Source Pulse Oximeter Temp 98.6 F Temp Source Oral Pulse Oximetry (%) 96 Oxygen Delivery Method Room Air Intake Visit Reasons: 3 months f/up Intake Note: Pt is here today for 3 months follow up visit. Pt has been out of his BP med for month and a half. Allergies Penicillins Allergy (Verified 09/18/24 14:08) Muscle cramps Medication List - Last Reconciled 09/18/24 by Veronica Perez MD multivitamin 1 tab PO DAILY valsartan 160 mg PO DAILY Tobacco use date assessed: 09/18/24 Dental Screening Dental Screen Date: 09/18/24 Did you have a dental visit in the last 12 months?: Yes Did you have a dental problem in the last 6 months where you did not have access to dental care?: No Was dental information given to patient?: Patient has dentist HPI 3 months f/up HPI Details Patient presents for the follow-up on hypertension and hyperglycemia. He has been exercising 4 times a week, following ADA diet and lost 7 lb since the last visit [facility] Medical History (Updated 09/18/24 @ 15:15 by Veronica Perez MD) Sleep apnea Acute kidney injury Hyperglycemia HTN (hypertension) Surgical History (Updated 09/18/24 @ 14:48 by Veronica Perez MD) Hx of colonoscopy H/O oral surgery No pertinent past surgical history Family History Father Hypertension Diabetes Mental health disorder Mother Diabetes Hypertension Other No family history of coronary artery disease Social History Household Members: Spouse Household Members Other:: , 3 children, 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, 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 Do you presently have visiting nurse or other home services: No Alcohol intake: current Alcohol intake frequency: does not drink Patient Tobacco Use Status: Never used Tobacco e-Cigarette/Vaping Use: Never Used Second Hand Smoke Exposure: No Advance Directives Date on File: 05/09/21 service: No Current occupational status: employed Current occupational exposures/hazards: No Cognitive needs: No Hearing needs: No Vision needs: Yes Questionnaire Thrive Questionnaire Date Thrive assessed: 05/09/24 I am a: Patient What is your living situation today?: I have a steady place to live Within the past 12 months, did the food you bought not last and you didn't have the money to get more?: Never true Within the past 12 months, did you worry whether your food would run out before you got money to buy more?: Never true Do you have trouble paying for medicines?: No Do you have trouble getting transportation to medical appointments?: No Do you have trouble paying your heating and electricity bill?: No Do you have trouble taking care of your child, family member or friend?: No Do you have trouble with day-to-day activities such as bathing, preparing meals, shopping, managing finances, etc.?: No Are you currently unemployed and looking for a job?: No Are you interested in more education?: No Please select the resources that you would like help with: None Currently or been in a relationship where the following occur: No concerns reported THRIVE Score: 0 AUDIT C Alcohol Use Questionnaire (AUDIT-C) 1. How often do you have a drink containing alcohol?: Never 3. How often do you have six or more drinks on one occasion?: Never Total Score: 0 DIANA-7 AMB Questionnaire DIANA-7 Date DIANA - 7 assessed: 05/15/24 Source: Developed by Drs. Nghia Reeves, Mer De Leon, Filippo Beck and colleagues, with an educational zainab from [employer]. Review of Systems Const All systems reviewed & are unremarkable except as noted in HPI and below Eyes Reports no additional complaints ENT Reports no additional complaints Card Reports no additional complaints Resp Reports no additional complaints GI Reports no additional complaints Reports no additional complaints Musc Reports no additional complaints Physical exam (Primary Care) Vital Signs: Last Vital Signs Temp 98.6 F 09/18/24 14:07 Pulse 86 09/18/24 14:07 Resp 18 09/18/24 14:07 BP 138/80 09/18/24 14:07 Pulse Ox 96 09/18/24 14:07 Oxygen Delivery Method Room Air 09/18/24 14:07 BMI result Body Mass Index 34.2 Tobacco/Smoking Status: Tobacco use Status Tobacco use date assessed 09/18/24 09/18/24 14:08 Patient Tobacco Use Status Never used Tobacco 09/18/24 14:08 e-Cigarette/Vaping Use Never Used 09/18/24 14:08 Thrive Assessment: Date of Thrive Assessment Date Thrive assessed 05/09/24 09/18/24 14:08 Currently or been in a relationship where the following occur: No concerns reported Const General: no acute distress HENMT Head: Yes normal to inspection Eyes General: appearance normal, both eyes and all related structures Neck Neck: Yes supple Resp Effort & Inspection: normal respiratory effort Auscultation: clear to auscultation bilaterally Cardio Rhythm: regular rhythm Heart sounds: S1 normal heart sound present and S2 normal heart sound present GI Inspection: Yes normal to inspection Palpation (GI): Soft to palpation Coding Level of Care Code Est Pt Level 4 (78754) Diagnoses HTN (hypertension) I10 Hyperglycemia R73.9 Overweight E66.3 Assessment & Plan Assessment & Plan (1) HTN (hypertension): Code(s): I10 - Essential (primary) hypertension Category: Medical Plan: Restart valsartan, continue regular exercise low-sodium diet follow-up in 4 months with a fasting labs before (2) Hyperglycemia: Code(s): R73.9 - Hyperglycemia, unspecified Category: Medical Plan: A1c is 5.8, ADA diet regular exercise weight loss discussed with the patient follow-up in 4 months with a fasting labs before (3) Overweight: Code(s): E66.3 - Overweight Category: Medical Plan: Decreasing caloric intake increasing physical activity weight loss discussed with the patient Orders: Orders Lipid Panel 4 Months E66.3 - Overweight, R73.9 - Hyperglycemia, unspecified, R79.89 - Other specified abnormal findings of blood chemistry Hepatitis B,C Profile 4 Months E66.3 - Overweight, R73.9 - Hyperglycemia, unspecified, R79.89 - Other specified abnormal findings of blood chemistry Comprehensive [place]. Panel Fast 4 Months E66.3 - Overweight, R73.9 - Hyperglycemia, unspecified, R79.89 - Other specified abnormal findings of blood chemistry Complete Blood Count Auto Diff 4 Months E66.3 - Overweight, R73.9 - Hyperglycemia, unspecified, R79.89 - Other specified abnormal findings of blood chemistry Hemoglobin A1c 4 Months E66.3 - Overweight, R73.9 - Hyperglycemia, unspecified, R79.89 - Other specified abnormal findings of blood chemistry Medications: Refilled valsartan 160 mg PO DAILY 90 tabs 3RF
== END 2024-09-18 14:55 | disposition home or self-care (01) ==
LOC: HO.HMCC 13:46
PROVIDERS: PCP Internal Medicine; Visit Provider Internal Medicine
DX: I10 Essential (primary) hypertension (principal); R73.9 Hyperglycemia, unspecified; E66.3 Overweight

== ENCOUNTER 2025-01-13 07:27 | Outpatient (REF) | payer OTHER, SELFPAY ==
--- OUTSIDE RECORDS SUMMARY | 2025-01-13 07:29 | XMS_ITS ---
Author Name [facility] Organization Unknown Care Team Organization Name Specialty Phone Email Start Date End Da te [facility] 05/10/20242024 [facility] 09/16/20232023
[2025-01-13 11:43] LABS: MANUAL DIFF FLAG NO
[2025-01-13 11:49] LABS: Hematocrit 46.5 % (42.0-52.0); Hemoglobin 15.3 g/dl (14.0-18.0); Imm Gran Abs Auto 0.01 X10*3/uL (0.00-0.03); Imm Gran Pct Auto 0.2 % (0.0-0.4); Lymphocytes Absolute Auto 2.2 X10*3/uL (1.2-4.9); Mean Corpuscular HGB Conc 32.9 g/dl (31.0-36.0); Mean Corpuscular Hemoglobin 29.9 pg (27.0-33.0); Mean Corpuscular Volume 90.8 fL (80.0-98.0); NRBC Abs Auto 0.000 X10*3/uL (0.0-0.012); NRBC Pct Auto 0.0 /100WBC (0.0-0.2); Platelet Count 280 X10*3/uL (160-400); Red Blood Count 5.12 X10*6/uL (4.60-5.80); White Blood Count 6.4 X10*3/uL (4.8-10.8)
[2025-01-13 12:25] LABS: HBS Num1 0.00 mIU/mL (0-7.99); HBc Num1 0.09 S/CO (0.00-0.79); HBsAGNum1 0.31 S/CO (0.00-0.99); Hepatitis B Surface Antigen Negative (Negative); ~HepC Num1 0.12 S/CO (0.00-0.79); ~Hepatitis B Surface Antibody NONREACTIVE (Nonreactive); ~Hepatitis C Antibody Nonreactive (Nonreactive)
[2025-01-13 12:41] LABS: Alanine Aminotransferase 38 U/L (0-40); Albumin Level 4.3 g/dL (3.5-5.0); Alkaline Phosphatase 61 U/L (39-117); Anion Gap 13 (12-20); Aspartate Amino Transferase 30 U/L (5-37); Blood Urea Nitrogen 19 mg/dL (9-16); Calcium 9.5 mg/dL (8.4-10.2); Carbon Dioxide 22 mmol/L (22-29); Chloride 114 mmol/L (96-108); Cholesterol 190 mg/dL (<200); Estimated Glomerular Filt Rate 56; HDL Cholesterol 48 mg/dL (>40); Potassium 4.2 mmol/L (3.3-5.1); Sodium 145 mmol/L (135-145); Total Protein 7.6 g/dL (6.5-8.0); Triglycerides 58 mg/dL (<150)
== END 2025-01-13 07:28 | disposition home or self-care (01) ==
LOC: HO.HMGCLDS 07:27
PROVIDERS: PCP Internal Medicine; Visit Provider Internal Medicine
DX: E66.3 Overweight (principal); R73.9 Hyperglycemia, unspecified; Z01.84 Encounter for antibody response examination
CPT/HCPCS: 36415; 80053; 80061; 83036; 85025; 86704; 86706; 86803; 87340

== ENCOUNTER 2025-01-17 10:34 | Outpatient (AMB) | payer OTHER, SELFPAY ==
[2025-01-17 10:37] VITALS: BP 124/80; PULSE 94; RESP 17; TEMP 36.9; O2SAT 96; BMI 33.4
--- NOTE | 2025-01-17 10:37 | MHC.PC.OV ---
Vital Signs 01/17/25 10:37 Height 5 ft 6 in Weight 207 lb BMI 33.4 BP 124/80 Blood Pressure Location Lt brachial Position Sitting Respiration 17 Pulse 94 Pulse Source Pulse Oximeter Temp 98.4 F Temp Source Oral Pulse Oximetry (%) 96 Oxygen Delivery Method Room Air Intake Visit Reasons: 4 months f/up Intake Note: Pt is here today for 4 months follow up visit. Allergies Penicillins Allergy (Verified 01/17/25 10:40) Muscle cramps Medication List - Last Reconciled 01/17/25 by Veronica Perez MD multivitamin 1 tab PO DAILY valsartan 160 mg PO DAILY Tobacco use date assessed: 01/17/25 Dental Screening Dental Screen Date: 09/18/24 HPI 4 months f/up HPI Details Patient presents for the follow-up of the hypertension, controlled on valsartan. Patient has been following ADA diet for hyperglycemia. He complains of chronic tinnitus and had a hearing test done in March which showed significant hearing loss and he was recommended to be evaluated by ENT. Patient has been using CPAP for obstructive sleep apnea and needs a new machine because he can not get compliance report from the old one. 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 Housing: House Do you presently have visiting nurse or other home services: No Alcohol intake: current Alcohol intake frequency: does not drink Patient Tobacco Use Status: Never used Tobacco e-Cigarette/Vaping Use: Never Used Second Hand Smoke Exposure: No Advance Directives Date on File: 05/09/21 service: No Current occupational status: employed Current occupational exposures/hazards: No Cognitive needs: No Hearing needs: No Vision needs: Yes Questionnaire Thrive Questionnaire Date Thrive assessed: 05/09/24 I am a: Patient What is your living situation today?: I have a steady place to live Within the past 12 months, did the food you bought not last and you didn't have the money to get more?: Never true Within the past 12 months, did you worry whether your food would run out before you got money to buy more?: Never true Do you have trouble paying for medicines?: No Do you have trouble getting transportation to medical appointments?: No Do you have trouble paying your heating and electricity bill?: No Do you have trouble taking care of your child, family member or friend?: No Do you have trouble with day-to-day activities such as bathing, preparing meals, shopping, managing finances, etc.?: No Are you currently unemployed and looking for a job?: No Are you interested in more education?: No Please select the resources that you would like help with: None Currently or been in a relationship where the following occur: No concerns reported THRIVE Score: 0 DIANA-7 AMB Questionnaire DIANA-7 Date DIANA - 7 assessed: 05/15/24 Source: Developed by Drs. Nghia Reeves, Mer De Leon, Filippo Beck and colleagues, with an educational zainab from [employer]. Review of Systems Const All systems reviewed & are unremarkable except as noted in HPI and below Eyes Reports no additional complaints ENT Reports no additional complaints Card Reports no additional complaints Resp Reports no additional complaints GI Reports no additional complaints Reports no additional complaints Physical exam (Primary Care) Vital Signs: Last Vital Signs Temp 98.4 F 01/17/25 10:37 Pulse 94 01/17/25 10:37 Resp 17 01/17/25 10:37 BP 124/80 01/17/25 10:37 Pulse Ox 96 01/17/25 10:37 Oxygen Delivery Method Room Air 01/17/25 10:37 BMI result Body Mass Index 33.4 Tobacco/Smoking Status: Tobacco use Status Tobacco use date assessed 01/17/25 01/17/25 10:45 Patient Tobacco Use Status Never used Tobacco 01/17/25 10:38 e-Cigarette/Vaping Use Never Used 01/17/25 10:38 Thrive Assessment: Date of Thrive Assessment Date Thrive assessed 05/09/24 01/17/25 10:38 Currently or been in a relationship where the following occur: No concerns reported Const General: no acute distress HENMT Head: Yes normal to inspection Ears: TM's normal bilaterally Eyes General: appearance normal, both eyes and all related structures Neck Neck: Yes no lymphadenopathy and Yes supple Resp Effort & Inspection: normal respiratory effort Auscultation: clear to auscultation bilaterally Cardio Rhythm: regular rhythm Heart sounds: S1 normal heart sound present and S2 normal heart sound present Coding Level of Care Code Est Pt Level 4 (51631) Diagnoses Sleep apnea G47.30 Tinnitus H93.19 Hyperglycemia R73.9 HTN (hypertension) I10 Assessment & Plan Assessment & Plan (1) Sleep apnea: Comment: on Cpap, compliant Code(s): G47.30 - Sleep apnea, unspecified Category: Medical Plan: Schedule a repeat sleep study to obtain a new CPAP machine (2) Tinnitus: Code(s): H93.19 - Tinnitus, unspecified ear Category: Medical Plan: Referred to ENT (3) Hyperglycemia: Code(s): R73.9 - Hyperglycemia, unspecified Category: Medical Plan: A1c was 6.0. ADA diet regular physical activity weight loss discussed with the patient. He will start monitoring his fasting blood glucose (4) HTN (hypertension): Code(s): I10 - Essential (primary) hypertension Category: Medical Plan: Continue valsartan return for physical in 4 months with fasting labs before Orders: Orders RT home sleep study Today G47.30 - Sleep apnea, unspecified Hemoglobin A1c 4 Months N17.9 - Acute kidney failure, unspecified, R73.9 - Hyperglycemia, unspecified, Z00.00 - Encounter for general adult medical examination without abnormal findings Microalbumin, Random (w Creat) 4 Months N17.9 - Acute kidney failure, unspecified, R73.9 - Hyperglycemia, unspecified, Z00.00 - Encounter for general adult medical examination without abnormal findings Comprehensive [place]. Panel Fast 4 Months N17.9 - Acute kidney failure, unspecified, R73.9 - Hyperglycemia, unspecified, Z00.00 - Encounter for general adult medical examination without abnormal findings Lipid Panel 4 Months N17.9 - Acute kidney failure, unspecified, R73.9 - Hyperglycemia, unspecified, Z00.00 - Encounter for general adult medical examination without abnormal findings Complete Blood Count Auto Diff 4 Months N17.9 - Acute kidney failure, unspecified, R73.9 - Hyperglycemia, unspecified, Z00.00 - Encounter for general adult medical examination without abnormal findings PSA,Total (Free>4and<10) 4 Months N17.9 - Acute kidney failure, unspecified, R73.9 - Hyperglycemia, unspecified, Z00.00 - Encounter for general adult medical examination without abnormal findings UA w Microscopic 4 Months N17.9 - Acute kidney failure, unspecified, R73.9 - Hyperglycemia, unspecified, Z00.00 - Encounter for general adult medical examination without abnormal findings Referrals Ear/Nose/Throat Referral H93.19 - Tinnitus, unspecified ear Medications: New ketoconazole 2% 1 appl topical DAILY 30 grams 0RF ketoconazole 2% 1 appl topical DAILY 30 grams 0RF blood sugar diagnostic (OneTouch Ultra Test strips) 1 qd 50 ea 2RF blood-glucose meter (OneTouch Ultra2 Meter) As directed 1 ea 0RF Refilled valsartan 160 mg PO DAILY 90 tabs 3RF
== END 2025-01-17 11:23 | disposition home or self-care (01) ==
LOC: HO.HMCC 10:35
PROVIDERS: PCP Internal Medicine; Visit Provider Internal Medicine
DX: G47.30 Sleep apnea, unspecified (principal); H93.19 Tinnitus, unspecified ear; R73.9 Hyperglycemia, unspecified; I10 Essential (primary) hypertension

== ENCOUNTER → 2025-02-26 13:02 | Outpatient (REF) | payer OTHER, SELFPAY | LOC: HO.SL 13:02 | PROVIDERS: PCP Internal Medicine; Visit Provider Internal Medicine | DX: G47.30 Sleep apnea, unspecified (principal) | CPT/HCPCS: 95806 ==

== ENCOUNTER → 2025-02-27 13:30 | Outpatient (BNV) | payer OTHER, SELFPAY | PROVIDERS: PCP Internal Medicine; Visit Provider Psychiatry & Neurology Neurology | DX: G47.33 Obstructive sleep apnea (adult) (pediatric) (principal) | CPT/HCPCS: 95806 ==